=== PATIENT | male | born 1945 | race Caucasian/White ===

== ENCOUNTER → 2018-06-12 | Day surgery (SDC) | payer MEDICARE, OTHER ==
--- NOTE | 2018-06-04 13:22 | Diagnostic Imaging Report ---
EXAMINATION: PA and lateral views of the chest. COMPARISON: None CLINICAL HISTORY: Preoperative study for lithotripsy DISCUSSION: Lines/tubes: None. Lungs: The lungs are well inflated and clear. There is no evidence of pneumonia or pulmonary edema. Pleura: There is no pleural effusion or pneumothorax. Heart and mediastinum: The cardiomediastinal silhouette is normal. Bones and soft tissues: No acute bony abnormalities. Degenerative changes in the thoracic spine IMPRESSION: No acute cardiopulmonary abnormalities. Signed by: Dr. Logan Saldivar M.D. on 06/04/2018 1:18 PM
[2018-06-04 13:32] LABS: BASOPHILS # (AUTO) 0.1 (0.0-0.1); BASOPHILS % 0.8 % (0.0-1.0); HEMATOCRIT 39.8 % (38.2-49.6); HEMOGLOBIN 13.1 g/dL (14.0-18.0); LYMPHOCYTES # (AUTO) 1.5 (1.0-3.2); LYMPHOCYTES % 22.1 % (18.0-39.1); MEAN CORPUSCULAR HEMOGLOBIN 31.8 pg (28-32); MEAN CORPUSCULAR HGB CONC 32.9 g/dL (31-35); MEAN CORPUSCULAR VOLUME 96.6 fL (81-99); MONOCYTES # (AUTO) 0.6 (0.2-0.8); MONOCYTES % 8.5 % (4.4-11.3); NEUTROPHILS # (AUTO) 4.5 (2.1-6.9); NEUTROPHILS % 68.1 % (38.7-80.0); PLATELET COUNT 134 x10e3/uL (140-360); RED BLOOD COUNT 4.12 x10e6/uL (4.3-5.7); RED CELL DISTRIBUTION WIDTH 12.4 % (11.7-14.4)
[2018-06-04 13:44] LABS: INR 0.8; PROTHROMBIN TIME 11.9 seconds (11.9-14.5)
[2018-06-04 13:45] LABS: PARTIAL THROMBOPLASTIN TIME 29.5 seconds (23.8-35.5)
[2018-06-04 13:54] LABS: ALBUMIN 3.6 g/dL (3.5-5.0); ALBUMIN/GLOBULIN RATIO 1.2 (0.8-2.0); ANION GAP 14.3 mmol/L (8-16); CALCIUM 10.2 mg/dL (8.4-10.2); CREATININE, SERUM 1.22 mg/dL (0.72-1.25); POTASSIUM 4.3 mmol/L (3.5-5.1)
[~2018-06-12] MED LIST: CEFOXITIN SOD 1 GM VIAL ONE; CLOPIDOGREL75 MG PO; CRANBERRY TABL1 EACH PO; DEXAMETHASONE SOD PHOS INJ 4 MG/ML VIAL ONE; EFFEXOR XR 3737.5 MG PO; FENTANYL CITRATE/PF 100MCG/2 ML INJ ONE; IOPAMIDOL 610MG/1ML 300 MG/ML VIAL IV ONE; LANSOPRAZOLE30 MG PO; LIDOCAINE HCL 2% LOCAL INJ 5 ML SDV VIAL INJ ONE; MECLIZINE HCL12.5 MG PO; MULTIVITAMINS1 EAC7 PO; NITROFURANTOIN100 MG PO; ONDANSETRON HCL INJ 2MG/ML 2ML 2 MG/ML VIAL ONE; PROPOFOL IV EMULSION 10 MG/ML 20 ML VIAL ONE; SEVOFLURANE INHAL SOLN 250 ML PEN BTL ONE; SIMVASTATIN80 MG PO; SUPER B COMPLE1 EACH PO; TURMERIC PO; VITAMIN B-125000 MCG PO; VITAMIN C1000 MG PO; VITAMIN D3 PO
--- OUTSIDE RECORDS SUMMARY | 2018-06-12 12:33 | XMS REPORT | Continuity of Care Document ---
Author Author [facility] Interface Address Unknown Phone Unavailable Problems Problem Status Onset Date Classification Date Reported Comments Source Toxic encephalopathy 06/05/2017 08/31/[address] [facility] HYPOTENSION Active 05/22/[address] [facility] SYNCOPE Active 09/30/2015 [facility] NSTEMI - Non-ST segment elevation [place] Active 04/28/2009 Problem 08/31/2017 [facility] Upper GI bleeding Active 04/28/2009 Problem 08/31/2017 [facility] Cellulitis of left lower limb 08/31/[address] [facility] Dehydration 08/31/[address] [facility] Atherosclerotic heart disease of [place] coronary artery without angina pectoris 08/31/[address] [facility] Hyperlipidemia, unspecified 08/31/[address] [facility] Essential hypertension 08/31/[address] [facility] Major depressive disorder, single episode, unspecified 08/31/[address] [facility] Adverse effect of other opioids, initial encounter 08/31/[address] [facility] Adverse effect of antiparkinsonism drugs and other central muscle-tone depressants, initial encounter 08/31/[address] [facility] GI bleed Active Problem 08/31/2017 [facility] HTN (<span ID="[id number]">Confirmed</span>) Resolved Problem 08/31/2017 [facility] Hyperlipidemia Active Problem 08/31/2017 [facility] Hypertension Active Problem 08/31/2017 [facility] [place] (<span ID="[id number]">Confirmed</span>) Active Problem 08/31/2017 [facility] TIA Active Problem 08/31/2017 [facility] TIA (<span ID="[id number]">Confirmed</span>) Resolved Problem 08/31/2017 [facility] Depression Active Problem 10/05/2015 [facility] SYNCOPE AND COLLAPSE Active [facility] SYNDACTYLY, UNSPECIFIED Active [facility] BRADYCARDIA, UNSPECIFIED Active [facility] Medications Medication Details Route Status Patient Instructions Ordering Provider Order Date Source clindamycin 300 mg oral capsule 300 mg=1 cap, PO, Q6H, X 10 day, # 40 cap, 0 Refill(s), Pharmacy: [facility]/pharmacy #[id number] No Longer Active 05/25/[address] [facility] Vanc level scheduled Vanc level scheduled, Vanc level due, Drug form: MISC, Route: MISC, ONCE, 05/25/17 10:00:00 [employer], Stop date: 05/25/17 10:00:00 [employer] Inactive 05/25/[address] [facility] Lovenox 40 mg, 0.4 mL, Route: SUB-Q, Drug form: INJ, [id number], Dosing Weight 103.9, kg, Start date: 05/24/17 11:00:00 [employer], Duration: 30 day, Stop date: 06/22/17 11:00:00 CSTNotes: (Same as: Lovenox) No Longer Active 05/24/[address] [facility] Prevacid 30 mg, Route: PO, Drug form: DRC, Daily, Dosing Weight 103.9, kg, Start date: 05/24/17 9:00:00 [employer], Duration: 30 day, Stop date: 06/22/17 9:00:00 [employer] No Longer Active 05/24/[address] [facility] vancomycin 1.25 gm, 250 mL, Route: IVPB, Drug form: INJ, [id number], Start date: 05/23/17 23:00:00 [employer], Duration: 13 doses or times, Stop date: 05/29/17 23:00:00 [employer], ABX Indication: Skin/Soft Tissue InfectionNotes: Same as: Vancocin-NS (premixed) No Longer Active 05/24/[address] [facility] Simvastatin 80 mg, 4 tab, Route: PO, Drug form: TAB, Bedtime, Dosing Weight 103.9, kg, Start date: 05/23/17 21:00:00 [employer], Duration: 30 day, Stop date: 06/21/17 21:00:00 CSTNotes: (Same as: Zocor) No Longer Active 05/24/[address] [facility] Protonix 40 mg, 1 tab, Route: PO, Drug form: ECTAB, Before Dinner, Start date: 05/23/17 16:30:00 [employer], Duration: 30 day, Stop date: 06/21/17 16:30:00 CSTNotes: (Same as: Protonix) No Longer Active 05/23/[address] [facility] vancomycin 1.75 gm, 500 mL, Route: IVPB, Drug form: SOLN, ONCE, Start date: 05/23/17 11:00:00 [employer], Stop date: 05/23/17 11:00:00 [employer], ABX Indication: Skin/Soft Tissue InfectionNotes: Same as: Vancocin Inactive 05/23/[address] [facility] Vancomycin 1 ea, Route: MISC, ONCALL, Dosing Weight 103.9, kg, Start date: 05/23/17 10:00:00 [employer], Duration: 7 day, Stop date: 05/30/17 9:59:00 [employer], Pharmacy to dose, ABX Indication: Skin/Soft Tissue Infection Inactive 05/23/[address] [facility] Zoloft 100 mg, 2 tab, Route: PO, Drug form: TAB, Daily, Dosing Weight 103.9, kg, Start date: 05/23/17 10:00:00 [employer], Duration: 30 day, Stop date: 06/22/17 9:00:00 CSTNotes: (Same as: Zoloft) No Longer Active 05/23/[address] [facility] Plavix 75 mg, 1 tab, Route: PO, Drug form: TAB, Daily, Dosing Weight 103.9, kg, Start date: 05/23/17 10:00:00 [employer], Duration: 30 day, Stop date: 06/22/17 9:00:00 CSTNotes: (Same As: Plavix) No Longer Active 05/23/[address] [facility] Aspirin 81 MG Enteric Coated Tablet 81 mg, 1 tab, Route: PO, Drug form: ECTAB, Daily, Dosing Weight 103.9, kg, Start date: 05/23/17 10:00:00 [employer], Duration: 30 day, Stop date: 06/22/17 9:00:00 CSTNotes: (Same As: Ecotrin) No Longer Active 05/23/[address] [facility] Acetaminophen 325 MG / Hydrocodone Bitartrate 10 MG Oral Tablet [[place] 10/325] 1 tab, PO, Q6H, PRN Pain 4-6/Temp > 100.4 F, 0 Refill(s) Active 05/23/[address] [facility] carisoprodol 350 mg oral tablet 350 mg=1 tab, PO, BID, PRN Muscle Spasms, 0 Refill(s) No Longer Active 05/23/[address] [facility] cephalexin 500 mg oral capsule 500 mg=1 cap, PO, TID, 0 Refill(s) No Longer Active 05/23/[address] [facility] Ondansetron 4 mg, 2 mL, Route: IV, Drug form: INJ, Q4H, Dosing Weight 104.545, kg, PRN Nausea, Start date: 05/22/17 19:56:00 [employer], Duration: 30 day, Stop date: 06/21/17 19:55:00 CSTNotes: (Same as: Zofran) MEDICATION WASTE Product Size: 4 mg Product Wasted: ___ mg No Longer Active 05/23/[address] [facility] Miralax 17 gm, 1 pkt, Route: PO, Drug form: PWDR, BID, Dosing Weight 104.545, kg, PRN Constipation, Start date: 05/22/17 19:56:00 [employer], Duration: 30 day, Stop date: 06/21/17 19:55:00 CSTNotes: Dissolve in 8 oz of water or juice. (Same as: Miralax) No Longer Active 05/23/[address] [facility] Acetaminophen 650 mg, 2 tab, Route: PO, Drug form: TAB, Q6H, Dosing Weight 104.545, kg, PRN Pain Score 1-3, Start date: 05/22/17 19:56:00 [employer], Duration: 30 day, Stop date: 06/21/17 19:55:00 CSTNotes: Do not exceed 4 gm/day. (Same as: Tylenol) No Longer Active 05/23/[address] [facility] Acetaminophen 325 MG / Hydrocodone Bitartrate 5 MG Oral Tablet 1 tab, Route: PO, Drug Form: TAB, Dosing Weight 104.545, kg, Q6H, PRN Pain Score 4-6, Start date: 05/22/17 19:56:00 [employer], Duration: 30 day, Stop date: 06/21/17 19:55:00 CSTNotes: (Same as: [place] 325/5) Do not exceed 4gm/day of acetaminophen. No Longer Active 05/23/[address] [facility] NS 1,000 mL 1,000 mL, Rate: 100 ml/hr, Infuse over: 10 hr, Route: IV, Dosing Weight 104.545 kg, Total Volume: 1,000, Start date: 05/22/17 19:55:00 [employer], Duration: 10 hr, Stop date: 05/23/17 5:54:00 [employer], 2.35, m2 No Longer Active 05/23/[address] [facility] Acetaminophen 325 MG / Hydrocodone Bitartrate 5 MG Oral Tablet 1 tab, Route: PO, Dosing Weight 104.545, kg, Q4H, PRN Pain Score 4-6, Start date: 05/22/17 19:54:00 [employer], Duration: 30 day, Stop date: 06/21/17 19:53:00 [employer] Inactive 05/23/[address] [facility] Acetaminophen 650 mg, 2 tab, Route: PO, Drug form: TAB, Q4H, Dosing Weight 104.545, kg, PRN Pain 1-3/Temp > 100.4 F, Start date: 05/22/17 19:54:00 [employer], Duration: 30 day, Stop date: 06/21/17 19:53:00 CSTNotes: Do not exceed 4 gm/day. (Same as: Tylenol) No Longer Active 05/23/[address] [facility] Ondansetron 4 mg, 2 mL, Route: IVP, Drug form: INJ, Q6H, Dosing Weight 104.545, kg, PRN Nausea & Vomiting, Start date: 05/22/17 19:54:00 [employer], Duration: 30 day, Stop date: 06/21/17 19:53:00 CSTNotes: (Same as: Flaquita) MEDICATION WASTE Product Size: 4 mg Product Wasted: ___ mg No Longer Active 05/23/[address] [facility] NS (Bolus) IV 1,000 mL, 1,000 ml/hr, Infuse Over: 1 hr, Route: IV, ONCE, Priority: STAT, Dosing Weight 104.545 kg, Start date: 05/22/17 17:45:00 [employer], Stop date: 05/22/17 17:45:00 [employer] Inactive 05/22/[address] [facility] Acetaminophen 300 MG / Codeine Phosphate 30 MG Oral Tablet [Tylenol with Codeine #3] 1 tab, PO, Q6H, PRN Pain Score 6-10, X 5 day, # 20 tab, 0 Refill(s) Active 10/02/2015 [facility] acetaminophen 325 mg oral tablet 650 mg=2 tab, PO, Q4H, PRN Pain 1-3/Temp > 100.4 F, 0 Refill(s) Active 10/02/2015 [facility] Aspirin 81 MG Enteric Coated Tablet 81 mg=1 tab, PO, Daily, 0 Refill(s) Active 10/02/2015 [facility] Simvastatin 80 mg, 2 tab, Route: PO, Drug form: TAB, Bedtime, Dosing Weight 90.909, kg, Start date: 10/01/15 21:00:00 CDT, Duration: 30 day, Stop date: 10/30/15 21:00:00 CDTNotes: (Same as: Zocor) No Longer Active 10/02/2015 [facility] potassium chloride 40 mEq, 2 tab, Route: PO, Drug form: ERTAB, ONCE, Dosing Weight 99.545, kg, Start date: 10/01/15 17:56:00 CDT, Stop date: 10/01/15 17:56:00 CDTNotes: (Same as: K-Dur 20) "Do Not Crush" With food and full glass of water Inactive 10/01/2015 [facility] Protonix 40 mg, 1 tab, Route: PO, Drug form: ECTAB, Before Dinner, Start date: 10/01/15 16:30:00 CDT, Duration: 30 day, Stop date: 10/30/15 16:30:00 CDTNotes: Tablet should not be chewed or crushed. (Same as: Protonix) No Longer Active 10/01/2015 [facility] senna 8.6 mg oral tablet 8.6 mg, 1 tab, Route: PO, Drug Form: TAB, Dosing Weight 99.545, kg, BID, PRN Constipation, Start date: 10/01/15 16:25:00 CDT, Duration: 30 day, Stop date: 10/31/15 16:24:00 CDTNotes: (Same as: Senokot) Inactive 10/01/2015 [facility] Acetaminophen 300 MG / Codeine Phosphate 30 MG Oral Tablet [Tylenol with Codeine #3] 1 tab, Route: PO, Drug Form: TAB, Dosing Weight 99.545, kg, Q6H, PRN Pain Score 6-10, Start date: 10/01/15 15:08:00 CDT, Duration: 30 day, Stop date: 10/31/15 15:07:00 CDTNotes: Do not exceed 4gm/day of acetaminophen. (Same as: Tylenol with Codeine # 3) No Longer Active 10/01/2015 [facility] Aspirin 81 mg, 1 tab, Route: PO, Drug form: ECTAB, Daily, Dosing Weight 99.545, kg, Start date: 10/01/15 9:00:00 CDT, Duration: 30 day, Stop date: 10/30/15 9:00:00 CDTNotes: Do not crush or chew. (Same As: Ecotrin) No Longer Active 10/01/2015 [facility] Zoloft 100 mg, 1 tab, Route: PO, Drug form: TAB, Daily, Dosing Weight 90.909, kg, Start date: 10/01/15 9:00:00 CDT, Duration: 30 day, Stop date: 10/30/15 9:00:00 CDTNotes: (Same as: Zoloft) No Longer Active 10/01/2015 [facility] Prevacid 30 mg, Route: PO, Drug form: DRC, Daily, Dosing Weight 90.909, kg, Start date: 10/01/15 9:00:00 CDT, Duration: 30 day, Stop date: 10/30/15 9:00:00 CDT Inactive 10/01/2015 [facility] Plavix 75 mg, 1 tab, Route: PO, Drug form: TAB, Daily, Dosing Weight 90.909, kg, Start date: 10/01/15 9:00:00 CDT, Duration: 30 day, Stop date: 10/30/15 9:00:00 CDTNotes: (Same As: Plavix) No Longer Active 10/01/2015 [facility] Magnesium Sulfate 1 gm, 100 mL, Route: IVPB, Drug form: INJ, ONCE, Dosing Weight 99.545, kg, Start date: 10/01/15 8:13:00 CDT, Duration: 1 doses or times, Stop date: 10/01/15 8:13:00 CDTNotes: WASTE: F/P - Sink; E - Municipal Trash Bin Inactive 10/01/2015 [facility] potassium chloride 40 mEq, 2 tab, Route: PO, Drug form: ERTAB, ONCE, Dosing Weight 99.545, kg, Start date: 10/01/15 8:12:00 CDT, Stop date: 10/01/15 8:12:00 CDTNotes: (Same as: K-Dur 20) "Do Not Crush" With food and full glass of water Inactive 10/01/2015 [facility] sodium chloride 0.9% 1000 ml INJ 1,000 mL 1,000 mL, Rate: 125 ml/hr, Infuse over: 8 hr, Route: IV, Dosing Weight 90.909 kg, Total Volume: 1,000, Start date: 10/01/15 1:10:00 CDT, Duration: 30 day, Stop date: 10/31/15 1:09:00 CDT No Longer Active 10/01/2015 [facility] heparin sodium, porcine 2500 UNT/ML Injectable Solution 5,000 unit, 1 mL, Route: SUB-Q, Drug form: INJ, Q8H, Dosing Weight 90.909, kg, Start date: 10/01/15 0:00:00 CDT, Duration: 30 day, Stop date: 10/30/15 16:00:00 CDTNotes: porcine heparin No Longer Active 10/01/2015 [facility] tramadol hydrochloride 50 MG Oral Tablet 50 mg, Route: PO, Drug form: TAB, ONCE, Dosing Weight 90.909, kg, PRN Pain Score 1-3, Start date: 09/30/15 23:57:00 CDT, Stop date: 10/30/15 23:56:00 CDT Inactive 10/01/2015 [facility] simvastatin 80 mg oral tablet 80 mg=1 tab, PO, Bedtime, # 90 tab, 1 Refill(s) Active 10/01/2015 [facility] lansoprazole 30 MG Enteric Coated Capsule [Prevacid] 30 mg=1 cap, PO, Daily, # 30 cap, 0 Refill(s) Active 10/01/2015 [facility] clopidogrel 75 MG Oral Tablet [Plavix] 75 mg=1 tab, PO, Daily, # 30 tab, 0 Refill(s) Active 10/01/2015 [facility] Sertraline 100 MG Oral Tablet [Zoloft] 100 mg=1 tab, PO, Daily, # 30 tab, 0 Refill(s) Active 10/01/2015 [facility] Hydrochlorothiazide 25 mg, PO, Daily, 0 Refill(s) No Longer Active 10/01/2015 [facility] Acetaminophen 650 mg, 2 tab, Route: PO, Drug form: TAB, Q4H, Dosing Weight 90.909, kg, PRN Pain 1-3/Temp > 100.4 F, Start date: 09/30/15 22:55:00 CDT, Duration: 30 day, Stop date: 10/30/15 22:54:00 CDTNotes: Do not exceed 4 gm/day. (Same as: Tylenol) No Longer Active 10/01/2015 [facility] Isolyte S (PH 7.4) 1000 mL 1,000 mL 1,000 mL, Rate: 1,000 ml/hr, Infuse over: 1 hr, Route: IV, Dosing Weight 90.909 kg, Total Volume: 1,000, Start date: 09/30/15 22:49:00 CDT, Duration: 1 doses or times, Stop date: 09/30/15 23:48:00 CDTNotes: (Same as: Isolyte S PH 7.4) Inactive 10/01/2015 [facility] Acetaminophen 1,000 mg, 2 tab, Route: PO, Drug form: TAB, ONCE, Dosing Weight 90.909, kg, Start date: 09/30/15 21:45:00 CDT, Stop date: 09/30/15 21:45:00 CDTNotes: Max acetaminophen 4000 mg/day (4 gm/day). (Same as: Tylenol Extra Strength) Inactive 10/01/2015 [facility] Isolyte S (PH 7.4) 1000 mL 1,000 mL 1,000 mL, Rate: 1,000 ml/hr, Infuse over: 1 hr, Route: IV, Dosing Weight 90.909 kg, Total Volume: 1,000, Start date: 09/30/15 21:44:00 CDT, Duration: 1 doses or times, Stop date: 09/30/15 22:43:00 CDTNotes: (Same as: Isolyte S PH 7.4) Inactive 10/01/2015 [facility] Allergies, Adverse Reactions, Alerts Substance Category Reaction Severity Reaction type Status Date Reported Comments Source Immunizations Immunization Date Given Site Status Last Updated Comments Source Results Order Name Results Value Reference Range Date Interpretation Comments Source TOXICOLOGY Vanco Lvl 17.6 ug/ml 05/25/[address] [facility] CHEM PANEL eGFR 73 mL/min/1.73m2 05/25/2017 Result Comment: The eGFR is calculated using the CKD-EPI formula. In most young, healthy individuals the eGFR will be >90 mL/min/1.73m2. The eGFR declines with age. An eGFR of 60-89 may be normal in some populations, particularly the elderly, for whom the CKD-EPI formula has not been extensively validated. Use of the eGFR is not recommended in the following populations: Individuals with unstable creatinine concentrations, including patients and those with serious co-morbid conditions. Patients with extremes in muscle mass or diet. The data above are obtained from the National Kidney Disease Education Program (NKDEP) which additionally recommends that when the eGFR is used in patients with extremes of body mass index for purposes of drug dosing, the eGFR should be multiplied by the estimated BMI. [facility] CHEM PANEL BUN 17 mg/dL 7 - 22 05/25/[address] [facility] CHEM PANEL Creatinine Lvl 1.02 mg/dL 0.50 - 1.40 05/25/[address] [facility] CHEM PANEL eGFR 63 mL/min/1.73m2 05/23/2017 Result Comment: The eGFR is calculated using the CKD-EPI formula. In most young, healthy individuals the eGFR will be >90 mL/min/1.73m2. The eGFR declines with age. An eGFR of 60-89 may be normal in some populations, particularly the elderly, for whom the CKD-EPI formula has not been extensively validated. Use of the eGFR is not recommended in the following populations: Individuals with unstable creatinine concentrations, including patients and those with serious co-morbid conditions. Patients with extremes in muscle mass or diet. The data above are obtained from the National Kidney Disease Education Program (NKDEP) which additionally recommends that when the eGFR is used in patients with extremes of body mass index for purposes of drug dosing, the eGFR should be multiplied by the estimated BMI. [facility] CHEM PANEL Glucose Lvl 101 mg/dL 70 - 99 05/23/[address] [facility] CHEM PANEL BUN 17 mg/dL 7 - 22 05/23/[address] [facility] CHEM PANEL Creatinine Lvl 1.15 mg/dL 0.50 - 1.40 05/23/[address] [facility] CHEM PANEL Sodium Lvl 142 meq/L 135 - 145 05/23/[address] [facility] CHEM PANEL Chloride Lvl 110 meq/L 95 - 109 05/23/[address] [facility] CHEM PANEL Potassium Lvl 4.2 meq/L 3.5 - 5.1 05/23/[address] [facility] CHEM PANEL CO2 26 meq/L 24 - 32 05/23/[address] [facility] CHEM PANEL Calcium Lvl 9.5 mg/dL 8.5 - 10.5 05/23/[address] [facility] CHEM PANEL AGAP 10.2 meq/L 10.0 - 20.0 05/23/[address] [facility] HEMATOLOGY WBC 7.8 K/CMM 3.7 - 10.4 05/23/2017 [facility] Hct 37.4 % 42.0 - 54.0 05/23/[address] [facility] HEMATOLOGY MPV 9.6 fL 7.4 - 10.4 05/23/2017 [facility] MCHC 32.9 g/dL 32.0 - 36.0 05/23/2017 [facility] MCH 31.1 pg 27.0 - 31.0 05/23/2017 [facility] MCV 94.4 fL 80.0 - 94.0 05/23/2017 [facility] Hgb 12.3 g/dL 14.0 - 18.0 05/23/2017 [facility] RBC 3.96 M/CMM 4.70 - 6.10 05/23/[address] [facility] HEMATOLOGY Platelet 132 K/CMM 133 - 450 05/23/[address] [facility] HEMATOLOGY RDW 13.7 % 11.5 - 14.5 05/23/[address] [facility] HEMATOLOGY Monocytes 8.1 % 2.0 - 12.0 05/23/[address] [facility] HEMATOLOGY Lymphocytes 16.8 % 20.0 - 40.0 05/23/[address] [facility] HEMATOLOGY Segs 72.3 % 45.0 - 75.0 05/23/2017 [facility] Monocytes # 0.6 K/CMM 0.0 - 0.8 05/23/[address] [facility] HEMATOLOGY Lymphocytes # 1.3 K/CMM 1.0 - 5.5 05/23/2017 [facility] HEMATOLOGY Basophils 0.5 % 0.0 - 1.0 05/23/[address] [facility] HEMATOLOGY Eosinophils 2.3 % 0.0 - 4.0 05/23/[address] [facility] HEMATOLOGY Segs-Bands # 5.6 K/CMM 1.5 - 8.1 05/23/[address] [facility] HEMATOLOGY Eosinophils # 0.2 K/CMM 0.0 - 0.5 05/23/[address] [facility] CHEM PANEL Lactic Acid Lvl 0.7 mMol/L 0.5 - 2.2 05/23/2017 [facility] UA Urobilinogen <=1.0 mg/dL 0.1 - 1.0 05/22/2017 [facility] WBC 5 /HPF 0 - 5 05/22/2017 [facility] Mucus Few /LPF None Seen /LPF 05/22/2017 [facility] RBC 3 /HPF 0 - 2 05/22/2017 [facility] Bacteria Few /HPF None Seen /HPF 05/22/2017 [facility] Hyal Cast 4 /LPF 0 - 2 05/22/2017 [facility] Sq Epi Occasional /LPF Few /LPF 05/22/2017 [facility] Leuk Est Trace *ABN* (05/22/17 5:37 PM) Negative 05/22/2017 [facility] Nitrite Negative (05/22/17 5:37 PM) Negative 05/22/2017 [facility] Blood Negative (05/22/17 5:37 PM) Negative 05/22/2017 [facility] Turbidity Marked *ABN* (05/22/17 5:37 PM) Clear 05/22/2017 [facility] Spec Grav 1.016 <=1.030 05/22/2017 [facility]A Bili Negative *NA* (05/22/17 5:37 PM) Negative 05/22/2017 [facility]A Protein Negative mg/dL Negative mg/dL 05/22/2017 [facility]A Ketones Negative mg/dL Negative mg/dL 05/22/2017 [facility]A Glucose Negative mg/dL Negative mg/dL 05/22/2017 [facility] STOOL UA Color Tracey *ABN* (05/22/17 5:37 PM) Yellow 05/22/[address] [facility] URINE AND STOOL UA pH 5.0 5.0 - 8.0 05/22/[address] [facility] CARDIAC ENZYMES BNP 64 pg/mL <=100 pg/mL 05/22/[address] [facility] CARDIAC ENZYMES Total CK 63 unit/L 12 - 191 05/22/[address] [facility] CARDIAC ENZYMES Troponin-I null 0.00 - 0.40 05/22/[address] [facility] CHEM PANEL Lipase Lvl 93 unit/L 73 - 393 05/22/[address] [facility] CHEM PANEL eGFR 37 mL/min/1.73m2 05/22/2017 Result Comment: The eGFR is calculated using the CKD-EPI formula. In most young, healthy individuals the eGFR will be >90 mL/min/1.73m2. The eGFR declines with age. An eGFR of 60-89 may be normal in some populations, particularly the elderly, for whom the CKD-EPI formula has not been extensively validated. Use of the eGFR is not recommended in the following populations: Individuals with unstable creatinine concentrations, including patients and those with serious co-morbid conditions. Patients with extremes in muscle mass or diet. The data above are obtained from the National Kidney Disease Education Program (NKDEP) which additionally recommends that when the eGFR is used in patients with extremes of body mass index for purposes of drug dosing, the eGFR should be multiplied by the estimated BMI. [facility] CHEM PANEL CO2 27 meq/L 24 - 32 05/22/[address] [facility] CHEM PANEL Calcium Lvl 10.2 mg/dL 8.5 - 10.5 05/22/[address] [facility] CHEM PANEL AST 22 unit/L 0 - 37 05/22/[address] [facility] CHEM PANEL Total Protein 7.9 g/dL 6.4 - 8.4 05/22/[address] [facility] CHEM PANEL ALT 14 unit/L 0 - 65 05/22/[address] [facility] CHEM PANEL Albumin Lvl 3.5 g/dL 3.5 - 5.0 05/22/[address] [facility] CHEM PANEL Alk Phos 101 unit/L 39 - 136 05/22/[address] [facility] CHEM PANEL Bili Total 0.3 mg/dL 0.2 - 1.3 05/22/[address] [facility] CHEM PANEL BUN 20 mg/dL 7 - 22 05/22/[address] [facility] CHEM PANEL Glucose Lvl 94 mg/dL 70 - 99 05/22/[address] [facility] CHEM PANEL Sodium Lvl 140 meq/L 135 - 145 05/22/[address] [facility] CHEM PANEL Creatinine Lvl 1.80 mg/dL 0.50 - 1.40 05/22/[address] [facility] CHEM PANEL Potassium Lvl 4.4 meq/L 3.5 - 5.1 05/22/[address] [facility] CHEM PANEL Chloride Lvl 107 meq/L 95 - 109 05/22/[address] [facility] CHEM PANEL B/C Ratio 11 6 - 25 05/22/[address] [facility] CHEM PANEL Globulin 4.4 g/dL 2.7 - 4.2 05/22/[address] [facility] CHEM PANEL A/G Ratio 0.8 0.7 - 1.6 05/22/[address] [facility] CHEM PANEL AGAP 10.4 meq/L 10.0 - 20.0 05/22/[address] [facility] CHEM PANEL Lactic Acid Lvl 2.2 mMol/L 0.5 - 2.2 05/22/2017 [facility] PTT 30.3 s 22.9 - 35.8 05/22/2017 [facility] PT 13.8 s 12.0 - 14.7 05/22/2017 [facility] INR 1.06 0.85 - 1.17 05/22/2017 [facility] WBC 9.3 K/CMM 3.7 - 10.4 05/22/2017 [facility] Hgb 12.7 g/dL 14.0 - 18.0 05/22/2017 [facility] MCV 94.6 fL 80.0 - 94.0 05/22/2017 [facility] Hct 39.4 % 42.0 - 54.0 05/22/2017 [facility] MCH 30.6 pg 27.0 - 31.0 05/22/2017 [facility] MPV 9.4 fL 7.4 - 10.4 05/22/2017 [facility] RBC 4.16 M/CMM 4.70 - 6.10 05/22/2017 [facility] MCHC 32.3 g/dL 32.0 - 36.0 05/22/2017 [facility] Platelet 172 K/CMM 133 - 450 05/22/2017 [facility] RDW 13.7 % 11.5 - 14.5 05/22/2017 [facility] Eosinophils # 0.2 K/CMM 0.0 - 0.5 05/22/2017 [facility] Basophils # 0.1 K/CMM 0.0 - 0.2 05/22/[address] [facility] HEMATOLOGY Lymphocytes # 1.7 K/CMM 1.0 - 5.5 05/22/[address] [facility] HEMATOLOGY Monocytes # 0.8 K/CMM 0.0 - 0.8 05/22/[address] [facility] HEMATOLOGY Lymphocytes 18.0 % 20.0 - 40.0 05/22/[address] [facility] HEMATOLOGY Monocytes 8.7 % 2.0 - 12.0 05/22/[address] [facility] HEMATOLOGY Segs 70.8 % 45.0 - 75.0 05/22/[address] [facility] HEMATOLOGY Eosinophils 1.8 % 0.0 - 4.0 05/22/[address] [facility] HEMATOLOGY Basophils 0.7 % 0.0 - 1.0 05/22/2017 [facility] Segs-Bands # 6.6 K/CMM 1.5 - 8.1 05/22/[address] [facility] Chest 1view DX Chest 1view DX Clinical indication: Chest pain - chest pain, bradycardia Comparison: Chest 1 view 09/30/2015 TECHNIQUE: AP chest FINDINGS: Lines, tubes and hardware: None. Lungs and pleura: The lung volumes are mildly low with left basilar subsegmental atelectasis. No focal consolidation. No definite pleural effusion or pneumothorax. Heart and mediastinum: The cardiomediastinal silhouette is within normal limits. Bones: No acute bony abnormality is identified. IMPRESSION: Low lung volumes with left basilar subsegmental atelectasis. SL: [id number] 05/22/2017 - - Read by: Serena Meza MD Dictated Date/time: 05/22/17 17:21 Electronically Signed by: Serena Meza MD 05/22/17 17:22 [address] [facility] CHEM PANEL eGFR 56 mL/min/1.73m2 10/02/2015 Result Comment: The eGFR is calculated using the CKD-EPI formula. In most young, healthy individuals the eGFR will be >90 mL/min/1.73m2. The eGFR declines with age. An eGFR of 60-89 may be normal in some populations, particularly the elderly, for whom the CKD-EPI formula has not been extensively validated. Use of the eGFR is not recommended in the following populations: Individuals with unstable creatinine concentrations, including patients and those with serious co-morbid conditions. Patients with extremes in muscle mass or diet. The data above are obtained from the National Kidney Disease Education Program (NKDEP) which additionally recommends that when the eGFR is used in patients with extremes of body mass index for purposes of drug dosing, the eGFR should be multiplied by the estimated BMI. [facility] CHEM PANEL Calcium Lvl 9.2 mg/dL 8.5 - 10.5 10/02/2015 [facility] CHEM PANEL CO2 31 meq/L 24 - 32 10/02/2015 [facility] CHEM PANEL Potassium Lvl 3.3 meq/L 3.5 - 5.1 10/02/2015 [facility] CHEM PANEL Chloride Lvl 104 meq/L 95 - 109 10/02/2015 [facility] CHEM PANEL Sodium Lvl 142 meq/L 135 - 145 10/02/2015 [facility] CHEM PANEL BUN 16 mg/dL 7 - 22 10/02/2015 [facility] CHEM PANEL Glucose Lvl 102 mg/dL 70 - 99 10/02/2015 [facility] CHEM PANEL Creatinine Lvl 1.29 mg/dL 0.50 - 1.40 10/02/2015 [facility] CHEM PANEL AGAP 10.3 meq/L 10.0 - 20.0 10/02/2015 [facility] HEMATOLOGY WBC 6.1 K/CMM 3.7 - 10.4 10/02/2015 [facility] HEMATOLOGY RBC 3.70 M/CMM 4.70 - 6.10 10/02/2015 [facility] HEMATOLOGY Hgb 11.6 g/dL 14.0 - 18.0 10/02/2015 [facility] HEMATOLOGY Hct 34.4 % 42.0 - 54.0 10/02/2015 [facility] HEMATOLOGY MCH 31.5 pg 27.0 - 31.0 10/02/2015 [facility] HEMATOLOGY MCHC 33.8 g/dL 32.0 - 36.0 10/02/2015 [facility] HEMATOLOGY RDW 13.9 % 11.5 - 14.5 10/02/2015 [facility] HEMATOLOGY Platelet 94 K/CMM 133 - 450 10/02/2015 [facility] HEMATOLOGY MPV 9.9 fL 7.4 - 10.4 10/02/2015 [facility] HEMATOLOGY MCV 93.2 fL 80.0 - 94.0 10/02/2015 [facility] HEMATOLOGY Eosinophils 2.8 % 0.0 - 4.0 10/02/2015 [facility] HEMATOLOGY Basophils 0.8 % 0.0 - 1.0 10/02/2015 [facility] HEMATOLOGY Segs-Bands # 3.5 K/CMM 1.5 - 8.1 10/02/2015 [facility] HEMATOLOGY Lymphocytes # 1.9 K/CMM 1.0 - 5.5 10/02/2015 [facility] HEMATOLOGY Monocytes # 0.5 K/CMM 0.0 - 0.8 10/02/2015 [facility] HEMATOLOGY Eosinophils # 0.2 K/CMM 0.0 - 0.5 10/02/2015 [facility] HEMATOLOGY Monocytes 7.6 % 2.0 - 12.0 10/02/2015 [facility] HEMATOLOGY Segs 57.7 % 45.0 - 75.0 10/02/2015 [facility] HEMATOLOGY Lymphocytes 31.1 % 20.0 - 40.0 10/02/2015 [facility] CARDIAC ENZYMES Troponin-I 0.02 ng/mL 0.00 - 0.40 10/02/2015 [facility] ELECTROLYTES Chloride Lvl 105 meq/L 95 - 109 10/01/2015 [facility] ELECTROLYTES AGAP 15.2 meq/L 10.0 - 20.0 10/01/2015 [facility] ELECTROLYTES Calcium Lvl 9.6 mg/dL 8.5 - 10.5 10/01/2015 [facility] ELECTROLYTES eGFR 49 mL/min/1.73m2 10/01/2015 Result Comment: The eGFR is calculated using the CKD-EPI formula. In most young, healthy individuals the eGFR will be >90 mL/min/1.73m2. The eGFR declines with age. An eGFR of 60-89 may be normal in some populations, particularly the elderly, for whom the CKD-EPI formula has not been extensively validated. Use of the eGFR is not recommended in the following populations: Individuals with unstable creatinine concentrations, including patients and those with serious co-morbid conditions. Patients with extremes in muscle mass or diet. The data above are obtained from the National Kidney Disease Education Program (NKDEP) which additionally recommends that when the eGFR is used in patients with extremes of body mass index for purposes of drug dosing, the eGFR should be multiplied by the estimated BMI. [facility] ELECTROLYTES BUN 17 mg/dL 7 - 22 10/01/2015 [facility] ELECTROLYTES Glucose Lvl 112 mg/dL 70 - 99 10/01/2015 [facility] ELECTROLYTES Potassium Lvl 3.2 meq/L 3.5 - 5.1 10/01/2015 [facility] ELECTROLYTES Sodium Lvl 142 meq/L 135 - 145 10/01/2015 [facility] ELECTROLYTES Creatinine Lvl 1.44 mg/dL 0.50 - 1.40 10/01/2015 [facility] ELECTROLYTES CO2 25 meq/L 24 - 32 10/01/2015 [facility] CARDIAC ENZYMES Troponin-I 0.04 ng/mL 0.00 - 0.40 10/01/2015 [facility] DRUG SCREEN UDS Note See Note *NA* (10/01/15 10:43 AM) 10/01/2015 [facility] DRUG SCREEN U Livier Scr Negative *NA* (10/01/15 10:43 AM) Negative 10/01/2015 [facility] DRUG SCREEN U Opiate Scr Negative *NA* (10/01/15 10:43 AM) Negative 10/01/2015 [facility] DRUG SCREEN U Phencyc Scr Negative *NA* (10/01/15 10:43 AM) Negative 10/01/2015 [facility] DRUG SCREEN U Benzodia Scr Negative *NA* (10/01/15 10:43 AM) Negative 10/01/2015 [facility] DRUG SCREEN U Cannab Scr Negative *NA* (10/01/15 10:43 AM) Negative 10/01/2015 [facility] DRUG SCREEN U Cocaine Scr Negative *NA* (10/01/15 10:43 AM) Negative 10/01/2015 [facility] DRUG SCREEN U Amph Scr Negative *NA* (10/01/15 10:43 AM) Negative 10/01/2015 [facility] URINE AND STOOL UA Color Yellow *NA* (10/01/15 10:43 AM) Yellow 10/01/2015 [facility] URINE AND STOOL UA Turbidity Clear (10/01/15 10:43 AM) Clear 10/01/2015 [facility] URINE AND STOOL UA Bili Negative *NA* (10/01/15 10:43 AM) Negative 10/01/2015 [facility] URINE AND STOOL UA WBC 5 /HPF 0 - 5 10/01/2015 [facility] URINE AND STOOL UA Amorph Nadia Occasional /HPF None Seen /HPF 10/01/2015 [facility] URINE AND STOOL UA Bacteria Occasional /HPF None Seen /HPF 10/01/2015 [facility] URINE AND STOOL UA Mucus Few /LPF None Seen /LPF 10/01/2015 [facility] URINE AND STOOL UA RBC 2 /HPF 0 - 2 10/01/2015 [facility] URINE AND STOOL UA Hyal Cast 11 /LPF 0 - 2 10/01/2015 [facility] URINE AND STOOL UA Urobilinogen <=1.0 mg/dL 0.1 - 1.0 10/01/2015 [facility] URINE AND STOOL UA Gran Cast 1 /LPF 10/01/2015 [facility] URINE AND STOOL Micro? Performed *NA* (10/01/15 10:43 AM) 10/01/2015 [facility] URINE AND STOOL UA Spec Grav 1.016 <=1.030 10/01/2015 [facility] URINE AND STOOL UA Protein 10 mg/dL Negative mg/dL 10/01/2015 [facility] URINE AND STOOL UA pH 5.5 5.0 - 8.0 10/01/2015 [facility] URINE AND STOOL UA Ketones Negative mg/dL Negative mg/dL 10/01/2015 [facility] URINE AND STOOL UA Glucose Negative mg/dL Negative mg/dL 10/01/2015 [facility] URINE AND STOOL UA Leuk Est Small *ABN* (10/01/15 10:43 AM) Negative 10/01/2015 [facility] URINE AND STOOL UA Blood Negative (10/01/15 10:43 AM) Negative 10/01/2015 [facility] URINE AND STOOL UA Nitrite Negative (10/01/15 10:43 AM) Negative 10/01/2015 [facility] URINE CHEM U Chloride 75 meq/L 10/01/2015 [facility] URINE CHEM U Potassium 52.8 meq/L 10/01/2015 [facility] URINE CHEM U Sodium 70 meq/L 10/01/2015 [facility] URINE CHEM U Creatinine 175.00 mg/dL 10/01/2015 [facility] CARDIAC ENZYMES Troponin-I 0.07 ng/mL 0.00 - 0.40 10/01/2015 [facility] ELECTROLYTES AGAP 16.3 meq/L 10.0 - 20.0 10/01/2015 [facility] ELECTROLYTES eGFR 36 mL/min/1.73m2 10/01/2015 Result Comment: The eGFR is calculated using the CKD-EPI formula. In most young, healthy individuals the eGFR will be >90 mL/min/1.73m2. The eGFR declines with age. An eGFR of 60-89 may be normal in some populations, particularly the elderly, for whom the CKD-EPI formula has not been extensively validated. Use of the eGFR is not recommended in the following populations: Individuals with unstable creatinine concentrations, including patients and those with serious co-morbid conditions. Patients with extremes in muscle mass or diet. The data above are obtained from the National Kidney Disease Education Program (NKDEP) which additionally recommends that when the eGFR is used in patients with extremes of body mass index for purposes of drug dosing, the eGFR should be multiplied by the estimated BMI. [facility] ELECTROLYTES Potassium Lvl 3.3 meq/L 3.5 - 5.1 10/01/2015 [facility] ELECTROLYTES Sodium Lvl 141 meq/L 135 - 145 10/01/2015 [facility] ELECTROLYTES Creatinine Lvl 1.86 mg/dL 0.50 - 1.40 10/01/2015 [facility] ELECTROLYTES BUN 19 mg/dL 7 - 22 10/01/2015 [facility] ELECTROLYTES Glucose Lvl 111 mg/dL 70 - 99 10/01/2015 [facility] ELECTROLYTES Calcium Lvl 9.7 mg/dL 8.5 - 10.5 10/01/2015 [facility] ELECTROLYTES CO2 24 meq/L 24 - 32 10/01/2015 [facility] ELECTROLYTES Chloride Lvl 104 meq/L 95 - 109 10/01/2015 [facility] HEMATOLOGY MPV 9.4 fL 7.4 - 10.4 10/01/2015 [facility] HEMATOLOGY MCHC 33.1 g/dL 32.0 - 36.0 10/01/2015 [facility] HEMATOLOGY MCV 92.9 fL 80.0 - 94.0 10/01/2015 [facility] HEMATOLOGY MCH 30.8 pg 27.0 - 31.0 10/01/2015 [facility] HEMATOLOGY RDW 13.7 % 11.5 - 14.5 10/01/2015 [facility] HEMATOLOGY Platelet 122 K/CMM 133 - 450 10/01/2015 [facility] HEMATOLOGY WBC 11.4 K/CMM 3.7 - 10.4 10/01/2015 [facility] HEMATOLOGY RBC 3.94 M/CMM 4.70 - 6.10 10/01/2015 [facility] HEMATOLOGY Hgb 12.1 g/dL 14.0 - 18.0 10/01/2015 [facility] HEMATOLOGY Hct 36.6 % 42.0 - 54.0 10/01/2015 [facility] HEMATOLOGY Basophils 0.3 % 0.0 - 1.0 10/01/2015 [facility] HEMATOLOGY Segs-Bands # 8.4 K/CMM 1.5 - 8.1 10/01/2015 [facility] HEMATOLOGY Lymphocytes # 2.2 K/CMM 1.0 - 5.5 10/01/2015 [facility] HEMATOLOGY RBC Morph Normal (10/01/15 5:28 AM) 10/01/2015 [facility] HEMATOLOGY Plt Morph Normal (10/01/15 5:28 AM) 10/01/2015 [facility] HEMATOLOGY Segs 73.3 % 45.0 - 75.0 10/01/2015 [facility] HEMATOLOGY Eosinophils 0.6 % 0.0 - 4.0 10/01/2015 [facility] HEMATOLOGY Monocytes 6.6 % 2.0 - 12.0 10/01/2015 [facility] HEMATOLOGY Lymphocytes 19.2 % 20.0 - 40.0 10/01/2015 [facility] HEMATOLOGY Monocytes # 0.8 K/CMM 0.0 - 0.8 10/01/2015 [facility] HEMATOLOGY Eosinophils # 0.1 K/CMM 0.0 - 0.5 10/01/2015 [facility] CARDIAC ENZYMES CK MB 0.8 ng/mL 0.5 - 3.6 10/01/2015 [facility] CARDIAC ENZYMES CK MB Index 0.9 0.0 - 2.5 10/01/2015 [facility] CARDIAC ENZYMES Total CK 85 unit/L 12 - 191 10/01/2015 [facility] CHEM PANEL Phosphorus 1.8 mg/dL 2.5 - 4.5 10/01/2015 [facility] CHEM PANEL Magnesium Lvl 1.7 mg/dL 1.8 - 2.4 10/01/2015 [facility] CHEM PANEL B/C Ratio 9 6 - 25 10/01/2015 [facility] CHEM PANEL Globulin 3.8 g/dL 2.0 - 4.0 10/01/2015 [facility] CHEM PANEL A/G Ratio 1.1 0.7 - 1.6 10/01/2015 [facility] CHEM PANEL Albumin Lvl 4.3 g/dL 3.5 - 5.0 10/01/2015 [facility] CHEM PANEL Alk Phos 91 unit/L 39 - 136 10/01/2015 [facility] CHEM PANEL Bili Total 0.8 mg/dL 0.2 - 1.3 10/01/2015 [facility] CHEM PANEL ALT 19 unit/L 0 - 65 10/01/2015 [facility] CHEM PANEL AST 17 unit/L 0 - 37 10/01/2015 [facility] CHEM PANEL Total Protein 8.1 g/dL 6.4 - 8.4 10/01/2015 [facility] HEMATOLOGY Platelet 137 K/CMM 133 - 450 10/01/2015 [facility] HEMATOLOGY MPV 10.0 fL 7.4 - 10.4 10/01/2015 [facility] HEMATOLOGY Hct 41.5 % 42.0 - 54.0 10/01/2015 [facility] HEMATOLOGY MCV 92.4 fL 80.0 - 94.0 10/01/2015 [facility] HEMATOLOGY MCH 30.6 pg 27.0 - 31.0 10/01/2015 [facility] HEMATOLOGY MCHC 33.1 g/dL 32.0 - 36.0 10/01/2015 [facility] HEMATOLOGY WBC 16.3 K/CMM 3.7 - 10.4 10/01/2015 [facility] HEMATOLOGY RDW 13.8 % 11.5 - 14.5 10/01/2015 [facility] HEMATOLOGY RBC 4.49 M/CMM 4.70 - 6.10 10/01/2015 [facility] HEMATOLOGY Hgb 13.8 g/dL 14.0 - 18.0 10/01/2015 [facility] HEMATOLOGY Monocytes # 1.0 K/CMM 0.0 - 0.8 10/01/2015 [facility] HEMATOLOGY Segs-Bands # 14.2 K/CMM 1.5 - 8.1 10/01/2015 [facility] HEMATOLOGY Lymphocytes # 0.9 K/CMM 1.0 - 5.5 10/01/2015 [facility] HEMATOLOGY Eosinophils 0.2 % 0.0 - 4.0 10/01/2015 [facility] HEMATOLOGY Basophils 0.3 % 0.0 - 1.0 10/01/2015 [facility] HEMATOLOGY Segs 87.4 % 45.0 - 75.0 10/01/2015 [facility] HEMATOLOGY Lymphocytes 5.8 % 20.0 - 40.0 10/01/2015 [facility] HEMATOLOGY Monocytes 6.3 % 2.0 - 12.0 10/01/2015 [facility] MYOGLOBIN Myoglobin 228 ng/mL 25 - 72 10/01/2015 [facility] Brain wo contrast CT Brain wo contrast CT EXAM: CT BRAIN WITHOUT CONTRAST DATE: 09/30/2015 9:34 PM CDT INDICATION: Lethargy COMPARISON:Brain CT dated 04/24/2009 TECHNIQUE: Routine axial CT images of the brain were obtained, with reformatted images in the sagittal and coronal plane. DLP: 1247 mGy-cm FINDINGS: Multiple areas of low attenuation in the periventricular and subcortical white matter, consistent with microvascular ischemic changes are identified. There is an area of encephalomalacia in the right cerebellum anteriorly. The ventricles and sulci are prominent as are result of volume loss. There are atherosclerotic changes at the carotid siphons. The paranasal sinuses, the orbits and mastoids are unremarkable. IMPRESSION: 1. No acute intracranial abnormality. 2. Microvascular ischemic changes and volume loss. 3. Encephalomalacia in the right cerebellum. 09/30/2015 - - Read by: Luz Poe Dictated Date/time: 10/01/15 08:27 Electronically Signed by: Luz Poe 10/01/15 08:29 FINAL REPORT [facility] Chest 1view DX Chest 1view DX EXAM: XR CHEST 1 VIEW DATE: 09/30/2015 9:38 PM CDT INDICATION: Syncope COMPARISON: Chest radiograph 04/27/2009 TECHNIQUE: AP chest FINDINGS: No pulmonary or pleural-based abnormality is identified. Mildly tortuous aorta. Pulmonary vascularity is normal. The heart size is normal for technique. No acute bony abnormality is identified. IMPRESSION: No acute cardiopulmonary abnormality. 09/30/2015 - - Read by: Pool Aponte MD Dictated Date/time: 09/30/15 22:39 Electronically Signed by: Pool Aponte MD 09/30/15 22:40 FINAL REPORT [facility] Vital Signs Vital Sign Value Date Comments Source Systolic (mm Hg) 130 05/25/2017 [facility] Diastolic (mm Hg) 57 05/25/[address] [facility] Respitory Rate 16 05/25/[address] [facility] Heart Rate 48 05/25/[address] [facility] Temperature Oral (F) 98.3 F 05/25/[address] [facility] Respitory Rate 18 05/25/[address] [facility] Systolic (mm Hg) 129 05/25/[address] [facility] Diastolic (mm Hg) 51 05/25/[address] [facility] Temperature Oral (F) 98.4 F 05/25/[address] [facility] Heart Rate 55 05/25/[address] [facility] Heart Rate 57 05/25/[address] [facility] Temperature Oral (F) 98.7 F 05/25/[address] [facility] Respitory Rate 18 05/25/[address] [facility] Systolic (mm Hg) 137 05/25/[address] [facility] Diastolic (mm Hg) 70 05/25/[address] [facility] Weight 103.9 05/23/[address] [facility] BMI Calculated 30.22 05/23/[address] [facility] Height 185.42 cm 05/23/[address] [facility] Weight 104.545 05/22/[address] [facility] BMI Calculated 29.59 05/22/[address] [facility] Height 187.96 cm 05/22/[address] [facility] Systolic (mm Hg) 110 10/02/2015 [facility] Diastolic (mm Hg) 51 10/02/2015 [facility] Temperature Oral (F) 97.3 F 10/02/2015 [facility] Respitory Rate 18 10/02/2015 [facility] Heart Rate 51 10/02/2015 [facility] Systolic (mm Hg) 101 10/02/2015 [facility] Diastolic (mm Hg) 54 10/02/2015 [facility] Respitory Rate 18 10/02/2015 [facility] Temperature Oral (F) 97 F 10/02/2015 [facility] Temperature Oral (F) 97.4 F 10/02/2015 [facility] Systolic (mm Hg) 108 10/02/2015 [facility] Diastolic (mm Hg) 50 10/02/2015 [facility] Respitory Rate 18 10/02/2015 [facility] BMI Calculated 29.76 10/01/2015 [facility] Weight 99.545 10/01/2015 [facility] Height 182.88 cm 10/01/2015 [facility] BMI Calculated 27.18 10/01/2015 [facility] Height 182.88 cm 10/01/2015 [facility] Heart Rate 78 10/01/2015 [facility] Weight 90.909 10/01/2015 [facility] Encounters Location Location Details Encounter Type Encounter Number Reason For Visit Attending Provider ADM Date DC Date Status Source [facility] OBS Observation Patient [id number] Mikhail Mouser 10/01/2015 10/02/2015 [facility] Inpatient [id number] Anjum Brandon 05/22/2017 05/25/[address] [facility] Procedures Procedure Code Date Perfomer Comments Source
--- OUTSIDE RECORDS SUMMARY | 2018-06-12 12:33 | XMS REPORT | Clinical Summary ---
Author Author [facility] Organization [facility] Address Unknown Phone Unavailable Care Team Providers Care Supervisor Line Department Name Role Phone Timo Heard MD PCP Allergies Comments Active Allergy Reactions Severity Noted Date Childhood allergy Iodine 06/02/2017 Medications End Date Status Medication Sig Dispensed Refills Start Date Active citalopram (CeleXA) 40 MG Take 40 mg by 0 tablet mouth every morning. Active sertraline (ZOLOFT) 100 Take 100 mg 0 MG tablet by mouth 8 every morning. Active clopidogrel (PLAVIX) 75 Take 75 mg by 0 mg tablet mouth every morning. Active lansoprazole (PREVACID) Take 30 mg by 0 30 MG capsule mouth daily before breakfast. Active simvastatin (ZOCOR) 80 MG Take 80 mg by 0 tablet mouth every morning. Active multivitamin with Take 1 tablet 0 minerals tablet by mouth every morning. Active tamsulosin (FLOMAX) 0.4 Take 0.4 mg 0 mg capsule,extended by mouth release 24hr every morning. Active promethazine (PHENERGAN) Take 25 mg by 0 25 MG tablet mouth every 6 (six) hours as needed for nausea or vomiting. Active ascorbic acid, vitamin C, Take 500 mg 0 (VITAMIN C) 500 MG tablet by mouth every morning. 09/04/2017 Discontinued lansoprazole (PREVACID) TAKE 1 0 30 MG capsule CAPSULE 7 BEFORE A MEAL ONCE A DAY ORALLY 09/04/2017 Discontinued simvastatin (ZOCOR) 80 MG TAKE TAKE 1 2 tablet TABLET BY 7 MOUTH EVERY DAY 09/04/2017 Discontinued carisoprodol (SOMA) 350 TAKE 1 TABLET 0 MG tablet BY MOUTH 8 TWICE A DAY NEEDED MUSCLE SPASMS 09/04/2017 Discontinued clopidogrel (PLAVIX) 75 TAKE TAKE 1 1 mg tablet TABLET BY 7 MOUTH EVERY DAY ONCE A DAY ORALLY 09/04/2017 Discontinued cyclobenzaprine TAKE 1 TO 2 0 (FLEXERIL) 5 mg tablet TABLETS BY 7 MOUTH 3 TIMES A DAY NEEDED FOR MUSCLE SPASMS 09/04/2017 Discontinued diazePAM (VALIUM) 10 MG 0 tablet 8 09/04/2017 Discontinued montelukast (SINGULAIR) Take 10 mg by 1 10 mg tablet mouth daily 8 as needed. 09/04/2017 Discontinued tiZANidine (ZANAFLEX) 4 TAKE 1-2 0 MG tablet TABLETS EVERY 8 8 HOURS NEEDED FOR MUSCLE SPASM Active Problems Problem Noted Date Altered mental status 09/04/2017 Lactic acidosis 03/14/2017 Cervical spinal stenosis 02/14/2017 Encounters Care Team Description Date Type Specialty Raya Wheat MD Thyroid cyst (Primary Dx); Thyroid nodule 06/11/2018 Transcribe Access Orders Timo Heard MD 05/21/2018 Hospital Radiology Encounter Timo Heard MD 05/20/2018 Hospital Radiology Encounter Timo Heard MD Thyroid nodule 05/20/2018 Hospital Radiology Encounter Timo Heard MD Thyroid nodule (Primary Dx) 05/11/2018 Transcribe Access Orders Howard Corona MD Bernick, James Jay, MD Altered mental status, unspecified altered mental status type (Primary Dx) 09/04/2017 Emergency Emergency Medicine after 06/11/2017 Family History Medical History Relation Name Comments No Known Problems Father No Known Problems Mother Relation Name Status Comments Father Mother Social History Date Tobacco Use Types Packs/Day Years Used Quit: 1976 Former Smoker Cigarettes 1 5 Smokeless Tobacco: Never Used Tobacco Cessation: Counseling Given: No Alcohol Use Drinks/Week oz/Week Comments Yes SOCIALLY Sex Assigned at Date Recorded Not on file Industry Job Start Date Occupation Not on file Not on file Not on file Travel End Travel History Travel Start No recent travel history available. Last Filed Vital Signs Time Taken Vital Sign Reading 09/04/2017 2:45 PM CDT Blood Pressure 156/67 09/04/2017 3:00 PM CDT Pulse 56 09/04/2017 11:01 AM CDT Temperature 37.1 C (98.7 F) 09/04/2017 3:00 PM CDT Respiratory Rate 19 09/04/2017 3:00 PM CDT Oxygen Saturation 95% - Inhaled Oxygen - Concentration - Weight - 09/04/2017 10:56 AM CDT Height 182.9 cm (6') - Body Mass Index - Plan of Treatment Care Team Description Date Type Specialty Evaristo Darling MD [address], [address] [place] [address] [phone] 06/16/2018 Office Visit Wound Care Raya Wheat MD [address] [place] [address] [phone] 06/17/2018 Appointment Radiology Health Maintenance Due Date Last Done Comments COLON CANCER SCREENING 1994 SHINGLES VACCINES (#1) 1994 65+ PNEUMOCOCCAL VACCINE 2009 (1 of 2 - PCV13) PNEUMOCOCCAL 2009 POLYSACCHARIDE VACCINE AGE 65 AND OVER INFLUENZA VACCINE 11/19/2017 Procedures Comments Procedure Name Priority Date/Time Associated Diagnosis NM THYROID UPTAKE AND Routine 05/21/2018 Thyroid nodule SCAN SINGLE OR MULTIPLE 10:47 AM STORE DETECTIVE TROPONIN Timed 09/04/2017 3:36 PM CDT XR CHEST 1 VW PORTABLE STAT 09/04/2017 2:11 PM CDT MRA NECK WO CONTRAST STAT 09/04/2017 12:50 PM CDT MRA HEAD WO CONTRAST STAT 09/04/2017 12:50 PM CDT MRI BRAIN WO CONTRAST STAT 09/04/2017 12:49 PM CDT ECG 12-LEAD STAT 09/04/2017 11:26 AM CDT ECG ED PRELIMINARY Routine 09/04/2017 INTERPRETATION 11:[address] STROKE BRAIN WO STAT 09/04/2017 CONTRAST 11:18 AM CDT COMPREHENSIVE METABOLIC STAT 09/04/2017 PANEL 11:04 AM CDT ZZESTIMATED GFR STAT 09/04/2017 11:04 AM CDT TROPONIN STAT 09/04/2017 11:04 AM CDT BASIC METABOLIC PANEL STAT 09/04/2017 11:04 AM CDT PARTIAL THROMBOPLASTIN STAT 09/04/2017 TIME (PTT) 11:04 AM CDT PROTHROMBIN TIME WITH INR STAT 09/04/2017 11:04 AM CDT HC COMPLETE BLD COUNT STAT 09/04/2017 W/AUTO DIFF 11:04 AM CDT after 06/11/2017 Results * NM Thyroid Uptake And Scan Single Or Multiple (05/21/2018 10:47 AM STORE DETECTIVE) Narrative Performed At EXAMINATION: NM THYROID UPTAKE AND SCAN SINGLE OR MULTIPLE [facility] CLINICAL HISTORY:E04.1 Nontoxic single thyroid nodule, thyroid nodule TECHNIQUE: The patient was given 280 uCi of I-123 Cassandra orally. 4 hours later, thyroid uptake was measured using a dedicated thyroid probe. 24 hours later, thyroid uptake was again performed, followed by planar imaging of the neck and upper chest in the anterior projection. FINDINGS: Normal uptake in the thyroid bilaterally. 4 hour radioiodine uptake=4% (normal=5-10%) 24 hour radioiodine uptake=19% (normal=10-25%) IMPRESSION: Essentially normal thyroid uptake and scan. A cold nodule cannot entirely be excluded in the left upper pole. Please note that modern evaluation of thyroid nodules is much better done with ultrasound. In patients with a suppressed TSH, a nuclear thyroid scan may identify a hot (autonomous) nodule to explain the hyperthyroidism. [facility]-[id number] Procedure Note Interface, Radiology Results Incoming - 05/21/2018 11:38 AM STORE DETECTIVE EXAMINATION: NM THYROID UPTAKE AND SCAN SINGLE OR MULTIPLE CLINICAL HISTORY: E04.1 Nontoxic single thyroid nodule, thyroid nodule TECHNIQUE: The patient was given 280 uCi of I-123 Cassandra orally. 4 hours later, thyroid uptake was measured using a dedicated thyroid probe. 24 hours later, thyroid uptake was again performed, followed by planar imaging of the neck and upper chest in the anterior projection. FINDINGS: Normal uptake in the thyroid bilaterally. 4 hour radioiodine uptake=4% (normal=5-10%) 24 hour radioiodine uptake=19% (normal=10-25%) IMPRESSION: Essentially normal thyroid uptake and scan. A cold nodule cannot entirely be excluded in the left upper pole. Please note that modern evaluation of thyroid nodules is much better done with ultrasound. In patients with a suppressed TSH, a nuclear thyroid scan may identify a hot (autonomous) nodule to explain the hyperthyroidism. [facility]-[id number] Performing Organization Address City/[facility]/Zipcode Phone Number [facility] [address] [place] [address] * Troponin (09/04/2017 3:36 PM CDT) Only the most recent of 2 results within the time period is included. Troponin <0.01 0.00 - 0.60 ng/mL [facility] DEPARTMENT OF Comment: PATHOLOGY AND 0.11 - 1.49 GENOMIC MEDICINE ng/mlMay indicate increased risk of acute coronary syndrome. >=1.5 ng/ml Consistent with acute myocardial infarction. The diagnostic value of a single normal or non-diagnostic result is questionable.Serial samples at 2-6 hour intervals are required to rule out acute myocardial injury. Specimen Plasma specimen Performing Organization Address City/[facility] Phone Number [facility] DEPARTMENT [facility] [place] [address] PATHOLOGY AND GENOMIC MEDICINE * XR Chest 1 Vw Portable (09/04/2017 2:11 PM CDT) Narrative Performed At EXAMINATION:XR CHEST 1 VW PORTABLE [facility] CLINICAL HISTORY:Chest Pain COMPARISON:03/15/2017 IMPRESSION: 1.The heart size is normal. 2.There is no evidence pulmonary edema. Minimal subsegmental atelectasis is present at the left lung base. There are no pleural effusions. [facility]-[id number] Procedure Note Interface, Radiology Results Incoming - 09/04/2017 2:20 PM CDT EXAMINATION: XR CHEST 1 VW PORTABLE CLINICAL HISTORY: Chest Pain COMPARISON: 03/15/2017 IMPRESSION: 1. The heart size is normal. 2. There is no evidence pulmonary edema. Minimal subsegmental atelectasis is present at the left lung base. There are no pleural effusions. [facility]-[id number] Performing Organization Address City/[facility]/Zipcode Phone Number [facility] [address] [place] [address] * MRA Neck Wo Contrast (09/04/2017 12:50 PM CDT) Narrative Performed At EXAMINATION: MRA NECK WO CONTRAST [facility] CLINICAL [facility]: ams COMPARISON:None TECHNIQUE: 2-D and 3-D [id number] MRA images of the cervical vessels were obtained with multiplanar and 3-D reconstructive algorithms. FINDINGS: Aortic Arch: MRA examination shows a left-sided aortic arch with normal branching pattern , there is no evidence of aortic dissection, aneurysms, penetrating ulcer or coarctation. Bilateral common carotid arteries: There is no evidence of flow-limiting stenosis, occlusion, dissection, aneurysms, pseudoaneurysms or vascular malformations. Bilateral carotid bifurcations and cervical ICAs: Shows no evidence of flow-limiting stenosis (by NASCET criteria) , occlusion, dissection, aneurysms, pseudoaneurysms or vascular malformations. Bilateral vertebral arteries: Shows no evidence for flow-limiting stenosis, occlusion, dissection, aneurysms, pseudoaneurysms or vascular malformations. IMPRESSION: Negative for cervical arterial flow-limiting stenosis (by NASCET criteria) , occlusion, dissection, aneurysms, pseudoaneurysms or vascular malformations. [id number] Procedure Note Interface, Radiology Results Incoming - 09/04/2017 1:04 PM CDT EXAMINATION: MRA NECK WO CONTRAST CLINICAL HISTORY: ams COMPARISON: None TECHNIQUE: 2-D and 3-D [id number] MRA images of the cervical vessels were obtained with multiplanar and 3-D reconstructive algorithms. FINDINGS: Aortic Arch: MRA examination shows a left-sided aortic arch with normal branching pattern , there is no evidence of aortic dissection, aneurysms, penetrating ulcer or coarctation. Bilateral common carotid arteries: There is no evidence of flow-limiting stenosis, occlusion, dissection, aneurysms, pseudoaneurysms or vascular malformations. Bilateral carotid bifurcations and cervical ICAs: Shows no evidence of flow- limiting stenosis (by NASCET criteria) , occlusion, dissection, aneurysms, pseudoaneurysms or vascular malformations. Bilateral vertebral arteries: Shows no evidence for flow-limiting stenosis, occlusion, dissection, aneurysms, pseudoaneurysms or vascular malformations. IMPRESSION: Negative for cervical arterial flow-limiting stenosis (by NASCET criteria) , occlusion, dissection, aneurysms, pseudoaneurysms or vascular malformations. [id number] Performing Organization Address City/State/Zipcode Phone Number [facility] [address] [place] [address] * MRA Head Wo Contrast (09/04/2017 12:50 PM CDT) Narrative Performed At EXAMINATION: MRA HEAD WO CONTRAST [facility] CLINICAL H[facility]ORY: ams COMPARISON:None TECHNIQUE: [id number] MRA images of the chenega of Purvis vessels were obtained with multiplanar and 3-D reconstructive algorithms. FINDINGS: Assessment of individual intracranial arteries demonstrate the following: Anterior circulation: - Intracranial right ICA: There is no hemodynamically significant stenosis or aneurysm. - Right middle cerebral artery: There is no hemodynamically significant stenosis or aneurysm. - Right anterior cerebral artery: There is no hemodynamically significant stenosis or aneurysm. - Intracranial left ICA:There is no hemodynamically significant stenosis or aneurysm. - Left middle cerebral artery: There is no hemodynamically significant stenosis or aneurysm. - Left anterior cerebral artery:There is no hemodynamically significant stenosis or aneurysm. Posterior circulation: - Basilar artery: There is no hemodynamically significant stenosis or aneurysm - Right CAGE UNLOADER: Patent. - Left CAGE UNLOADER: Patent. - Bilateral superior cerebral arteries: There is no hemodynamically significant stenosis or aneurysm . - Bilateral anterior inferior cerebellar arteries: Patent.There is no hemodynamically significant stenosis or aneurysm. - Bilateral PICAs: Partially visualized and patent. - Intradural segment of the vertebral arteries:There is no hemodynamically significant stenosis or aneurysm. IMPRESSION: There is no evidence of intracranial flow-limiting stenosis, occlusion, aneurysm or dissection. [id number] Procedure Note Interface, Radiology Results Incoming - 09/04/2017 1:07 PM CDT EXAMINATION: MRA HEAD WO CONTRAST CLINICAL HISTORY: ams COMPARISON: None TECHNIQUE: [id number] MRA images of the chenega of Purvis vessels were obtained with multiplanar and 3-D reconstructive algorithms. FINDINGS: Assessment of individual intracranial arteries demonstrate the following: Anterior circulation: - Intracranial right ICA: There is no hemodynamically significant stenosis or aneurysm. - Right middle cerebral artery: There is no hemodynamically significant stenosis or aneurysm. - Right anterior cerebral artery: There is no hemodynamically significant stenosis or aneurysm. - Intracranial left ICA:There is no hemodynamically significant stenosis or aneurysm. - Left middle cerebral artery: There is no hemodynamically significant stenosis or aneurysm. - Left anterior cerebral artery:There is no hemodynamically significant stenosis or aneurysm. Posterior circulation: - Basilar artery: There is no hemodynamically significant stenosis or aneurysm - Right CAGE UNLOADER: Patent. - Left CAGE UNLOADER: Patent. - Bilateral superior cerebral arteries: There is no hemodynamically significant stenosis or aneurysm . - Bilateral anterior inferior cerebellar arteries: Patent.There is no hemodynamically significant stenosis or aneurysm. - Bilateral PICAs: Partially visualized and patent. - Intradural segment of the vertebral arteries:There is no hemodynamically significant stenosis or aneurysm. IMPRESSION: There is no evidence of intracranial flow-limiting stenosis, occlusion, aneurysm or dissection. [id number] Performing Organization Address City/State/Zipcode Phone Number [facility] [address] [place] [address] * MRI Brain Wo Contrast (09/04/2017 12:49 PM CDT) Narrative Performed At [facility] EXAMINATION:MRI BRAIN WO CONTRAST CLINICAL HISTORY:ams COMPARISON:None. Technique: Multiplanar and multisequence MRI images of the brain are obtained without the use of ionic intravenous contrast. Sagittal axial and coronal images are obtained. Diffusion weighted sequences are performed. No intravenous contrast was given. Findings: Diffusion weighted images demonstrates no evidence of any acute infarction. The visualized paranasal sinuses are clear.The globes and optic nerves are unremarkable. The posterior fossa does not demonstrate any masses. The usman and midbrain did not demonstrate any masses. The ventricles are symmetrical without any mass effect. There is no evidence of any midline shift. There is no extra-axial fluid collection. The cerebral hemispheres demonstrate no intracranial hemorrhage or mass lesion. Mild periventricular ischemic white matter changes are present. The sella turcica is not enlarged. Visualized portion of the upper cervical cord demonstrates no abnormality. IMPRESSION: 1.No acute intracranial abnormalities or mass lesions. 2. Mild periventricular ischemic white matter changes are present. [id number] Procedure Note Interface, Radiology Results [facility] - 09/04/2017 1:01 PM CDT EXAMINATION: MRI BRAIN WO CONTRAST CLINICAL HISTORY: ams COMPARISON: None. Technique: Multiplanar and multisequence MRI images of the brain are obtained without the use of ionic intravenous contrast. Sagittal axial and coronal images are obtained. Diffusion weighted sequences are performed. No intravenous contrast was given. Findings: Diffusion weighted images demonstrates no evidence of any acute infarction. The visualized paranasal sinuses are clear. The globes and optic nerves are unremarkable. The posterior fossa does not demonstrate any masses. The usman and midbrain did not demonstrate any masses. The ventricles are symmetrical without any mass effect. There is no evidence of any midline shift. There is no extra-axial fluid collection. The cerebral hemispheres demonstrate no intracranial hemorrhage or mass lesion. Mild periventricular ischemic white matter changes are present. The sella turcica is not enlarged. Visualized portion of the upper cervical cord demonstrates no abnormality. IMPRESSION: 1. No acute intracranial abnormalities or mass lesions. 2. Mild periventricular ischemic white matter changes are present. [id number] Performing Organization Address [facility] Centercovt Phone Number [facility] [address] [place] [address] * ECG 12 lead (09/04/2017 11:26 AM CDT) Ventricular rate 51 [facility] Atrial rate 51 [facility] MO interval 182 [facility] QRSD interval 86 [facility] QT interval 412 [facility] QTC interval 379 [facility] P axis 1 30 [facility] QRS axis 1 -2 [facility] T wave axis 41 [facility] EKG impression Sinus bradycardia-Otherwise [facility] MUSE normal ECG-In automated comparison with ECG of 14-MAR-2017 14:46,-Sinus rhythm has replaced Ectopic atrial rhythm-Vent. rate has decreased BY 31 BPM- Performing Organization Address [facility]ovt Phone Number [facility] MUSE [address] [place] [address] * ECG ED Preliminary Interpretation - NOT AN ORDER (09/04/2017 11:20 AM CDT) Narrative Performed At Howard Corona MD 09/05/20171:10 PM ECG ED Preliminary Interpretation - Not an Order Performed by: HOWARD CORONA Authorized by: HOWARD CORONA Rate: ECG rate:51 ECG rate assessment: bradycardic Rhythm: Rhythm: sinus bradycardia QRS: QRS axis:Normal ST segments: ST segments:Normal * CT Stroke Brain Wo Contrast (09/04/2017 11:18 AM CDT) Narrative Performed At EXAMINATION: CT STROKE BRAIN WO CONTRAST [facility] CLINICAL HISTORY: CONFUSION DELERIUMALTERED LOCUNEXPLAINED COMPARISON:None TECHNIQUE: Noncontrast CT of the brain was performed. Both soft tissue and bone reconstruction algorithms are interpreted. CT imaging was performed with iterative reconstruction techniques and/or automated exposure control to reduce radiation dose. FINDINGS: No acute cortical infarct is identified. No intracranial hemorrhage, extra-axial collection, mass effect or hyperdense vessel is seen. There is no acute hydrocephalus. Mild nonspecific lucency in the cerebral white matter likely reflects chronic small vessel ischemic change. Involutional changes of the brain are noted. Visualized portions of the paranasal sinuses show no air-fluid level. Mastoid air cells are clear. No fracture or aggressive bony lesion is seen. IMPRESSION: No acute intracranial abnormality identified. Findings were discussed with Dr. HOWARD CORONA at 09/04/2017 11:10 AM who verbalized understanding. [facility]-[id number] Procedure Note Interface, Radiology Results Incoming - 09/04/2017 11:30 AM CDT EXAMINATION: CT STROKE BRAIN WO CONTRAST CLINICAL HISTORY: CONFUSION DELERIUM ALTERED LOC UNEXPLAINED COMPARISON: None TECHNIQUE: Noncontrast CT of the brain was performed. Both soft tissue and bone reconstruction algorithms are interpreted. CT imaging was performed with iterative reconstruction techniques and/or automated exposure control to reduce radiation dose. FINDINGS: No acute cortical infarct is identified. No intracranial hemorrhage, extra-axial collection, mass effect or hyperdense vessel is seen. There is no acute hydrocephalus. Mild nonspecific lucency in the cerebral white matter likely reflects chronic small vessel ischemic change. Involutional changes of the brain are noted. Visualized portions of the paranasal sinuses show no air-fluid level. Mastoid air cells are clear. No fracture or aggressive bony lesion is seen. IMPRESSION: No acute intracranial abnormality identified. Findings were discussed with Dr. HOWARD CORONA at 09/04/2017 11:10 AM who verbalized understanding. [facility]-[id number] Performing Organization Address City/State/Zipcode Phone Number [facility] [address] [place] [address] * Estimated GFR (09/04/2017 11:04 AM CDT) GFR Non Af Amer 54 (A) mL/min/1.73 m2 [facility] DEPARTMENT OF PATHOLOGY AND GENOMIC MEDICINE GFR Af Amer 66 mL/min/1.73 m2 [facility] DEPARTMENT OF Comment: PATHOLOGY AND Chronic kidney disease: <60 GENOMIC MEDICINE mL/min/1.73m2 Kidney failure: <15 mL/min/1.73m2 The estimated GFR is calculated from the IDMS-traceable Modification of Diet in Renal Disease Equation. The accuracy of the calculation is poor when the creatinine is normal. Calculated values >90 mL/min/1.73m2 are not reported. This equation has not been validated in children (<18 years), women, the elderly (>70 years), or ethnic groups other than Caucasians and Americans. Specimen Plasma specimen Performing Organization Address [facility] Centercode Phone Number [facility] [address] [place] [address]. [place] [address] PATHOLOGY AND [facility] * Partial thromboplastin time, activated (09/04/2017 11:04 AM CDT) PTT 30.4 23.0 - 36.0 sec [facility] DEPARTMENT OF Comment: PATHOLOGY AND PTT therapeutic range for GENOMIC MEDICINE unfractionated heparin is 61.0-112.0 seconds which corresponds to Anti-Xa 0.3-0.7 U/ml. Note:Change in Panic Value The PTT Panic Value is changing from 110 sec. to 100 sec. due to new instrumentation and reagents. Correlation studies have been performed to validate this result. Specimen Blood Performing Organization Address [facility] [place] [address] PATHOLOGY [facility] * Prothrombin time with INR (09/04/2017 11:04 AM CDT) Prothrombin time 13.7 12.0 - 15.0 sec [facility] DEPARTMENT OF PATHOLOGY AND [facility] INR 1.04 0.92 - 1.12 [facility] DEPARTMENT OF Comment: PATHOLOGY AND For patients on anticoagulant GENOMIC MEDICINE therapy, reference ranges below: Indication: INR Value Treatment of Venous Thrombosis, 2.0-3.0 pulmonary emboli, or prophylaxis of a venous thrombosis, or systemic emboli. High dose, high risk patients 3.0-4.5 with mechanical valves. NOTE:INR values over 3.0 are sometimes associated with gastrointestinal hemorrhage, especially values over 4.0. Specimen Blood Performing Organization Address [facility] Centercode Phone Number 25 [place] [address] PATHOLOGY AND [facility] * CBC with platelet and differential (09/04/2017 11:04 AM CDT) WBC 8.2 4.2 - 11.0 k/uL [facility] DEPARTMENT OF PATHOLOGY AND [facility] MEDICINE RBC 4.19 4.04 - 5.86 m/uL [facility] DEPARTMENT OF PATHOLOGY AND [facility] MEDICINE HGB 12.9 (L) 13.0 - 17.3 g/dL [facility] DEPARTMENT OF PATHOLOGY AND GENOMIC MEDICINE HCT 40.1 34.0 - 45.0 % [facility] DEPARTMENT OF PATHOLOGY AND GENOMIC MEDICINE MCV 95.7 80.0 - 98.0 fL [facility] DEPARTMENT OF PATHOLOGY AND GENOMIC MEDICINE MCH 30.8 27.0 - 34.0 pg [facility] DEPARTMENT OF PATHOLOGY AND GENOMIC MEDICINE MCHC 32.2 31.5 - 36.5 g/dL [facility] DEPARTMENT OF PATHOLOGY AND GENOMIC MEDICINE RDW - SD 47.1 37.0 - 51.0 fL [facility] DEPARTMENT OF PATHOLOGY AND GENOMIC MEDICINE MPV 11.4 (H) 7.4 - 10.4 fL [facility] DEPARTMENT OF PATHOLOGY AND GENOMIC MEDICINE Platelet count 128 (L) 150 - 400 k/uL [facility] DEPARTMENT OF PATHOLOGY AND GENOMIC MEDICINE Nucleated RBC 0.00 /100 WBC [facility] DEPARTMENT OF PATHOLOGY AND GENOMIC MEDICINE Neutrophils 78.0 (H) 36.0 - 66.0 % [facility] DEPARTMENT OF PATHOLOGY AND GENOMIC MEDICINE Lymphocytes 15.5 (L) 24.0 - 44.0 % [facility] DEPARTMENT OF PATHOLOGY AND GENOMIC MEDICINE Monocytes 5.5 0.0 - 6.0 % [facility] DEPARTMENT OF PATHOLOGY AND GENOMIC MEDICINE Eosinophils 0.0 0.0 - 6.0 % [facility] DEPARTMENT OF PATHOLOGY AND GENOMIC MEDICINE Basophils 0.5 0.0 - 1.2 % [facility] DEPARTMENT OF PATHOLOGY AND GENOMIC MEDICINE Immature granulocytes 0.5 0.0 - 1.0 % [facility] DEPARTMENT OF PATHOLOGY AND GENOMIC MEDICINE Performing Organization Address City/State/Zipcode Phone Number [place] [phone] [place] [address] PATHOLOGY AND GENOMIC MEDICINE * Comprehensive metabolic panel (09/04/2017 11:04 AM CDT) Sodium 145 135 - 150 mEq/L [facility] DEPARTMENT OF PATHOLOGY AND GENOMIC MEDICINE Potassium 3.8 3.5 - 5.0 mEq/L [facility] DEPARTMENT OF PATHOLOGY AND GENOMIC MEDICINE Chloride 111 (H) 100 - 109 mEq/L [facility] DEPARTMENT OF PATHOLOGY AND GENOMIC MEDICINE CO2 25 24 - 32 mmol/L [facility] DEPARTMENT OF PATHOLOGY AND GENOMIC MEDICINE Anion gap 9@ANIO 7 - 15 mEq/L [facility] DEPARTMENT OF PATHOLOGY AND GENOMIC MEDICINE BUN 11 7 - 18 mg/dL [facility] DEPARTMENT OF PATHOLOGY AND GENOMIC MEDICINE Creatinine 1.3 0.8 - 1.5 mg/dL [facility] DEPARTMENT OF PATHOLOGY AND GENOMIC MEDICINE Glucose 111 (H) 65 - 100 mg/dL [facility] DEPARTMENT OF PATHOLOGY AND GENOMIC MEDICINE Calcium 9.8 8.6 - 10.7 mg/dL [facility] DEPARTMENT OF PATHOLOGY AND GENOMIC MEDICINE Protein 6.8 6.3 - 8.2 g/dL [facility] DEPARTMENT OF PATHOLOGY AND GENOMIC MEDICINE Albumin 3.3 3.2 - 5.0 g/dL [facility] DEPARTMENT OF PATHOLOGY AND GENOMIC MEDICINE A/G ratio 0.9 0.7 - 3.8 [facility] DEPARTMENT OF PATHOLOGY AND GENOMIC MEDICINE Alkaline phosphatase 95 30 - 120 U/L [facility] DEPARTMENT OF PATHOLOGY AND GENOMIC MEDICINE AST 19 15 - 37 U/L [facility] DEPARTMENT OF PATHOLOGY AND GENOMIC MEDICINE ALT 17 (L) 30 - 65 U/L [facility] DEPARTMENT OF PATHOLOGY AND GENOMIC MEDICINE Total bilirubin 0.6 0.2 - 1.2 mg/dL [facility] DEPARTMENT OF PATHOLOGY AND GENOMIC MEDICINE Specimen Plasma specimen Performing Organization Address City/[facility] Phone Number [place] [phone] [place] [address] PATHOLOGY AND GENOMIC MEDICINE * Basic metabolic panel (09/04/2017 11:04 AM CDT) Sodium 145 135 - 150 mEq/L [facility] DEPARTMENT OF PATHOLOGY AND GENOMIC MEDICINE Potassium 3.8 3.5 - 5.0 mEq/L [facility] DEPARTMENT OF PATHOLOGY AND GENOMIC MEDICINE Chloride 111 (H) 100 - 109 mEq/L [facility] DEPARTMENT OF PATHOLOGY AND GENOMIC MEDICINE CO2 25 24 - 32 mmol/L [facility] DEPARTMENT OF PATHOLOGY AND GENOMIC MEDICINE Anion gap 9@ANIO 7 - 15 mEq/L [facility] DEPARTMENT OF PATHOLOGY AND GENOMIC MEDICINE BUN 11 7 - 18 mg/dL [facility] DEPARTMENT OF PATHOLOGY AND GENOMIC MEDICINE Creatinine 1.3 0.8 - 1.5 mg/dL [facility] DEPARTMENT OF PATHOLOGY AND GENOMIC MEDICINE Glucose 111 (H) 65 - 100 mg/dL [facility] DEPARTMENT OF PATHOLOGY AND GENOMIC MEDICINE Calcium 9.8 8.6 - 10.7 mg/dL [facility] DEPARTMENT OF PATHOLOGY AND GENOMIC MEDICINE Specimen Plasma specimen Performing Organization Address City/[facility] Cent[facility]ode Phone Number [address] [place] [address] PATHOLOGY AND GENOMIC MEDICINE after 06/11/2017 Insurance Payer Benefit Subscriber ID Type Phone Address Plan / Group MEDICARE MEDICARE xxxxxxxxxx Medicare [place], [place] PART A AND B AETNA AETNA xxxxxxxxxx HMO HMO,POS,EP O, MC/EC Advance Directives Patient has advance care planning documents on file. For more information, johanna e contact: Collin Rosales [address] [place] [address]
--- OUTSIDE RECORDS SUMMARY | 2018-06-12 12:34 | XMS REPORT | Summary of Care ---
Author Author [facility] Organization [facility] Address Unknown Phone Unavailable Encounter ANNEMARIE Galeas(KAYLENE) [id number] Date(s): 09/30/15 - 10/02/15 [facility] [address] [employer] provided by [facility] [employer] [facility] [employer] [place] [address]- Discharge Disposition: Home Attending Physician: Mikhail Johnston MD Admitting Physician: Mikhail Johnston MD Vital Signs 1 2 3 Most recent to oldest [Reference Range]: 182.88 cm (10/01/15 1:12 AM) 182.88 cm (09/30/15 8:53 PM) Height 97.3 DegF (10/02/15 7:29 AM) 97 DegF (10/02/15 4:21 AM) 97.4 DegF (10/01/15 11:44 PM) Temperature Oral [96.4-99.1 DegF] 110/51 mmHg (10/02/15 7:29 AM) 101/54 mmHg (10/02/15 4:21 AM) 108/50 mmHg (10/01/15 11:44 PM) Blood Pressure [90-140/60-90 mmHg] 18 BRMIN (10/02/15 7:29 AM) 18 BRMIN (10/02/15 4:21 AM) 18 BRMIN (10/01/15 11:44 PM) Respiratory Rate [14-20 BRMIN] 51 bpm *LOW* (10/02/15 7:29 AM) 78 bpm (09/30/15 8:53 PM) Peripheral Pulse Rate [60-100 bpm] 99.545 kg (10/01/15 1:12 AM) 90.909 kg (09/30/15 8:53 PM) Weight 29.76 m2 (10/01/15 1:12 AM) 27.18 m2 (09/30/15 8:53 PM) Body Mass Index Problem List Condition Effective Dates Status Health Status Informant Depression(Confirmed Active ) GI bleed(Confirmed) Active HTN Resolved (hypertension)(Confi rmed) Hyperlipidemia(Confi Active rmed) Hypertension(Confirm Active ed) AL (myocardial Active infarction)(Confirme d) NSTEMI - Non-ST 04/28/09 Active segment elevation AL(Confirmed) TIA(Confirmed) Active TIA (transient Resolved ischemic attack)(Confirmed) Upper GI 04/28/09 Active bleeding(Confirmed) Allergies, Adverse Reactions, Alerts Substance Reaction Severity Status NKDA Active Medications acetaminophen 650 mg, 2 tab, Route: PO, Drug form: TAB, Q4H, Dosing Weight 90.909, kg, PRN Sai n 1-3/Temp > 100.4 F, Start date: 09/30/15 22:55:00 CDT, Duration: 30 day, Stop date: 10/30/15 22:54:00 CDT Notes: Do not exceed 4 gm/day. (Same as: Tylenol) Start Date: 09/30/15 Stop Date: 10/02/15 Status: Discontinued acetaminophen 1,000 mg, 2 tab, Route: PO, Drug form: TAB, ONCE, Dosing Weight 90.909, kg, Star t date: 09/30/15 21:45:00 CDT, Stop date: 09/30/15 21:45:00 CDT Notes: Max acetaminophen 4000 mg/day (4 gm/day). (Same as: Tylenol Extra Streng th) Start Date: 09/30/15 Stop Date: 09/30/15 Status: Completed acetaminophen 325 mg oral tablet 650 mg=2 tab, PO, Q4H, PRN Pain 1-3/Temp > 100.4 F, 0 Refill(s) Start Date: 10/02/15 Status: Ordered aspirin 81 mg, 1 tab, Route: PO, Drug form: ECTAB, Daily, Dosing Weight 99.545, kg, Star t date: 10/01/15 9:00:00 CDT, Duration: 30 day, Stop date: 10/30/15 9:00:00 CDT Notes: Do not crush or chew.(Same As: Ecotrin) Start Date: 10/01/15 Stop Date: 10/02/15 Status: Discontinued aspirin 81 mg tablet, enteric coated 81 mg=1 tab, PO, Daily, 0 Refill(s) Start Date: 10/02/15 Status: Ordered heparin 5000 units/mL injectable solution 5,000 unit, 1 mL, Route: SUB-Q, Drug form: INJ, Q8H, Dosing Weight 90.909, kg, S tart date: 10/01/15 0:00:00 CDT, Duration: 30 day, Stop date: 10/30/15 16:00:00 CDT Notes: porcine heparin Start Date: 10/01/15 Stop Date: 10/02/15 Status: Discontinued hydrochlorothiazide 25 mg, PO, Daily, 0 Refill(s) Start Date: 09/30/15 Stop Date: 10/02/15 Status: Discontinued Isolyte S (PH 7.4) 1000 mL 1,000 mL 1,000 mL, Rate: 1,000 ml/hr, Infuse over: 1 hr, Route: IV, Dosing Weight 90.909 kg, Total Volume: 1,000, Start date: 09/30/15 22:49:00 CDT, Duration: 1 doses or times, Stop date: 09/30/15 23:48:00 CDT Notes: (Same as: Isolyte S PH 7.4) Start Date: 09/30/15 Stop Date: 09/30/15 Status: Completed Isolyte S (PH 7.4) 1000 mL 1,000 mL 1,000 mL, Rate: 1,000 ml/hr, Infuse over: 1 hr, Route: IV, Dosing Weight 90.909 kg, Total Volume: 1,000, Start date: 09/30/15 21:44:00 CDT, Duration: 1 doses or times, Stop date: 09/30/15 22:43:00 CDT Notes: (Same as: Isolyte S PH 7.4) Start Date: 09/30/15 Stop Date: 09/30/15 Status: Completed magnesium sulfate 1 gm, 100 mL, Route: IVPB, Drug form: INJ, ONCE, Dosing Weight 99.545, kg, Start date: 10/01/15 8:13:00 CDT, Duration: 1 doses or times, Stop date: 10/01/15 8:1 3:00 CDT Notes: WASTE: F/P - Sink; E - Municipal Trash Bin Start Date: 10/01/15 Stop Date: 10/01/15 Status: Completed Plavix 75 mg, 1 tab, Route: PO, Drug form: TAB, Daily, Dosing Weight 90.909, kg, Start date: 10/01/15 9:00:00 CDT, Duration: 30 day, Stop date: 10/30/15 9:00:00 CDT Notes: (Same As: Plavix) Start Date: 10/01/15 Stop Date: 10/02/15 Status: Discontinued Plavix 75 mg oral tablet 75 mg=1 tab, PO, Daily, # 30 tab, 0 Refill(s) Start Date: 09/30/15 Status: Ordered potassium chloride 40 mEq, 2 tab, Route: PO, Drug form: ERTAB, ONCE, Dosing Weight 99.545, kg, Star t date: 10/01/15 8:12:00 CDT, Stop date: 10/01/15 8:12:00 CDT Notes: (Same as: K-Dur 20)"Do Not Crush" With food and full glass of water Start Date: 10/01/15 Stop Date: 10/01/15 Status: Completed potassium chloride 40 mEq, 2 tab, Route: PO, Drug form: ERTAB, ONCE, Dosing Weight 99.545, kg, Star t date: 10/01/15 17:56:00 CDT, Stop date: 10/01/15 17:56:00 CDT Notes: (Same as: K-Dur 20)"Do Not Crush" With food and full glass of water Start Date: 10/01/15 Stop Date: 10/01/15 Status: Completed Prevacid 30 mg, Route: PO, Drug form: DRC, Daily, Dosing Weight 90.909, kg, Start date: 0 10/01/15 9:00:00 CDT, Duration: 30 day, Stop date: 10/30/15 9:00:00 CDT Start Date: 10/01/15 Stop Date: 10/01/15 Status: Deleted Prevacid 30 mg oral delayed release capsule 30 mg=1 cap, PO, Daily, # 30 cap, 0 Refill(s) Start Date: 09/30/15 Status: Ordered Protonix 40 mg, 1 tab, Route: PO, Drug form: ECTAB, Before Dinner, Start date: 10/01/15 1 6:30:00 CDT, Duration: 30 day, Stop date: 10/30/15 16:30:00 CDT Notes: Tablet should not be chewed or crushed.(Same as: Protonix) Start Date: 10/01/15 Stop Date: 10/02/15 Status: Discontinued senna 8.6 mg oral tablet 8.6 mg, 1 tab, Route: PO, Drug Form: TAB, Dosing Weight 99.545, kg, BID, PRN Con stipation, Start date: 10/01/15 16:25:00 CDT, Duration: 30 day, Stop date: 10/30 16:24:00 CDT Notes: (Same as: Senokot) Start Date: 10/01/15 Stop Date: 10/01/15 Status: Discontinued simvastatin 80 mg, 2 tab, Route: PO, Drug form: TAB, Bedtime, Dosing Weight 90.909, kg, Star t date: 10/01/15 21:00:00 CDT, Duration: 30 day, Stop date: 10/30/15 21:00:00 CD T Notes: (Same as: Zocor) Start Date: 10/01/15 Stop Date: 10/02/15 Status: Discontinued simvastatin 80 mg oral tablet 80 mg=1 tab, PO, Bedtime, # 90 tab, 1 Refill(s) Start Date: 09/30/15 Stop Date: 12/29/15 Status: Ordered sodium chloride 0.9% 1000 ml INJ 1,000 mL 1,000 mL, Rate: 125 ml/hr, Infuse over: 8 hr, Route: IV, Dosing Weight 90.909 kg , Total Volume: 1,000, Start date: 10/01/15 1:10:00 CDT, Duration: 30 day, Stop date: 10/31/15 1:09:00 CDT Start Date: 10/01/15 Stop Date: 10/02/15 Status: Discontinued tramadol 50 mg oral tablet 50 mg, Route: PO, Drug form: TAB, ONCE, Dosing Weight 90.909, kg, PRN Pain Score 1-3, Start date: 09/30/15 23:57:00 CDT, Stop date: 10/30/15 23:56:00 CDT Start Date: 09/30/15 Stop Date: 09/30/15 Status: Completed Tylenol with Codeine #3 oral tablet 1 tab, Route: PO, Drug Form: TAB, Dosing Weight 99.545, kg, Q6H, PRN Pain Score 6-10, Start date: 10/01/15 15:08:00 CDT, Duration: 30 day, Stop date: 10/31/15 1 5:07:00 CDT Notes: Do not exceed 4gm/day of acetaminophen. (Same as: Tylenol with Codeine # 3) Start Date: 10/01/15 Stop Date: 10/02/15 Status: Discontinued Tylenol with Codeine #3 oral tablet 1 tab, PO, Q6H, PRN Pain Score 6-10, X 5 day, # 20 tab, 0 Refill(s) Start Date: 10/02/15 Stop Date: 10/07/15 Status: Ordered Zoloft 100 mg, 1 tab, Route: PO, Drug form: TAB, Daily, Dosing Weight 90.909, kg, Start date: 10/01/15 9:00:00 CDT, Duration: 30 day, Stop date: 10/30/15 9:00:00 CDT Notes: (Same as: Zoloft) Start Date: 10/01/15 Stop Date: 10/02/15 Status: Discontinued Zoloft 100 mg oral tablet 100 mg=1 tab, PO, Daily, # 30 tab, 0 Refill(s) Start Date: 09/30/15 Status: Ordered Results ELECTROLYTES 1 2 3 Most recent to oldest [Reference Range]: 142 mEq/L (10/02/15 3:24 AM) 142 mEq/L (10/01/15 4:20 PM) 141 mEq/L (10/01/15 5:28 AM) Sodium Lvl [135-145 mEq/L] 3.3 mEq/L *LOW* (10/02/15 3:24 AM) 3.2 mEq/L *LOW* (10/01/15 4:20 PM) 3.3 mEq/L *LOW* (10/01/15 5:28 AM) Potassium Lvl [3.5-5.1 mEq/L] 104 mEq/L (10/02/15 3:24 AM) 105 mEq/L (10/01/15 4:20 PM) 104 mEq/L (10/01/15 5:28 AM) Chloride Lvl [95-109 mEq/L] 31 mEq/L (10/02/15 3:24 AM) 25 mEq/L (10/01/15 4:20 PM) 24 mEq/L (10/01/15 5:28 AM) CO2 [24-32 mEq/L] 10.3 mEq/L (10/02/15 3:24 AM) 15.2 mEq/L (10/01/15 4:20 PM) 16.3 mEq/L (10/01/15 5:28 AM) AGAP [10.0-20.0 mEq/L] CHEM PANEL 1 2 3 Most recent to oldest [Reference Range]: 1.29 mg/dL (10/02/15 3:24 AM) 1.44 mg/dL *HI* (10/01/15 4:20 PM) 1.86 mg/dL *HI* (10/01/15 5:28 AM) Creatinine Lvl [0.50-1.40 mg/dL] 56 mL/min/1.73m2 1 *NA* (10/02/15 3:24 AM) 49 mL/min/1.73m2 2 *NA* (10/01/15 4:20 PM) 36 mL/min/1.73m2 3 *NA* (10/01/15 5:28 AM) eGFR 16 mg/dL (10/02/15 3:24 AM) 17 mg/dL (10/01/15 4:20 PM) 19 mg/dL (10/01/15 5:28 AM) BUN [7-22 mg/dL] 9 (09/30/15 9:46 PM) B/C Ratio [6-25] 102 mg/dL *HI* (10/02/15 3:24 AM) 112 mg/dL *HI* (10/01/15 4:20 PM) 111 mg/dL *HI* (10/01/15 5:28 AM) Glucose Lvl [70-99 mg/dL] 8.1 g/dL (09/30/15 9:46 PM) Total Protein [6.4-8.4 g/dL] 4.3 g/dL (09/30/15 9:46 PM) Albumin Lvl [3.5-5.0 g/dL] 3.8 g/dL (09/30/15 9:46 PM) Globulin [2.0-4.0 g/dL] 1.1 (09/30/15 9:46 PM) A/G Ratio [0.7-1.6] 9.2 mg/dL (10/02/15 3:24 AM) 9.6 mg/dL (10/01/15 4:20 PM) 9.7 mg/dL (10/01/15 5:28 AM) Calcium Lvl [8.5-10.5 mg/dL] 1.8 mg/dL *LOW* (09/30/15 9:46 PM) Phosphorus [2.5-4.5 mg/dL] 1.7 mg/dL *LOW* (09/30/15 9:46 PM) Magnesium Lvl [1.8-2.4 mg/dL] 19 unit/L (09/30/15 9:46 PM) ALT [0-65 unit/L] 17 unit/L (09/30/15 9:46 PM) AST [0-37 unit/L] 91 unit/L (09/30/15 9:46 PM) Alk Phos [39-136 unit/L] 0.8 mg/dL (09/30/15 9:46 PM) Bili Total [0.2-1.3 mg/dL] 1Result Comment: The eGFR is calculated using the [...] from the National Kidney Disease Education Program ( NKDEP) which additionally recommends that when the eGFR is used in patients with extremes of body mass index for purposes of drug dosing, the eGFR should be mul tiplied by the estimated BMI. 2Result Comment: The eGFR is calculated using the [...] from the National Kidney Disease Education Program ( NKDEP) which additionally recommends that when the eGFR is used in patients with extremes of body mass index for purposes of drug dosing, the eGFR should be mul tiplied by the estimated BMI. 3Result Comment: The eGFR is calculated using the [...] from the National Kidney Disease Education Program ( NKDEP) which additionally recommends that when the eGFR is used in patients with extremes of body mass index for purposes of drug dosing, the eGFR should be mul tiplied by the estimated BMI. CARDIAC ENZYMES 1 2 3 Most recent to oldest [Reference Range]: 85 unit/L (09/30/15 9:46 PM) Total CK [12-191 unit/L] 0.8 ng/mL (09/30/15 9:46 PM) CK MB [0.5-3.6 ng/mL] 0.9 (09/30/15 9:46 PM) CK MB Index [0.0-2.5] 0.02 ng/mL (10/01/15 9:44 PM) 0.04 ng/mL (10/01/15 2:11 PM) 0.07 ng/mL (10/01/15 5:28 AM) Troponin-I [0.00-0.40 ng/mL] MYOGLOBIN 1 2 3 Most recent to oldest [Reference Range]: 228 ng/mL *HI* (09/30/15 9:46 PM) Myoglobin [25-72 ng/mL] DRUG SCREEN 1 2 3 Most recent to oldest [Reference Range]: Negative *NA* (10/01/15 10:43 AM) U Amph Scr [Negative] Negative *NA* (10/01/15 10:43 AM) U Livier Scr [Negative] Negative *NA* (10/01/15 10:43 AM) U Benzodia Scr [Negative] Negative *NA* (10/01/15 10:43 AM) U Cocaine Scr [Negative] Negative *NA* (10/01/15 10:43 AM) U Opiate Scr [Negative] Negative *NA* (10/01/15 10:43 AM) U Phencyc Scr [Negative] Negative *NA* (10/01/15 10:43 AM) U Cannab Scr [Negative] See Note *NA* (10/01/15 10:43 AM) UDS Note URINE CHEM 1 2 3 Most recent to oldest [Reference Range]: 175.00 mg/dL *NA* (10/01/15 10:43 AM) U Creatinine 70 mEq/L *NA* (10/01/15 10:43 AM) U Sodium 52.8 mEq/L *NA* (10/01/15 10:43 AM) U Potassium 75 mEq/L *NA* (10/01/15 10:43 AM) U Chloride URINE AND STOOL 1 2 3 Most recent to oldest [Reference Range]: Clear (10/01/15 10:43 AM) UA Turbidity [Clear] Yellow *NA* (10/01/15 10:43 AM) UA Color [Yellow] 5.5 (10/01/15 10:43 AM) UA pH [5.0-8.0] 1.016 (10/01/15 10:43 AM) UA Spec Grav [<=1.030] Negative mg/dL *NA* (10/01/15 10:43 AM) UA Glucose [Negative mg/dL] Negative (10/01/15 10:43 AM) UA Blood [Negative] Negative mg/dL *NA* (10/01/15 10:43 AM) UA Ketones [Negative mg/dL] 10 mg/dL *ABN* (10/01/15 10:43 AM) UA Protein [Negative mg/dL] <=1.0 mg/dL *NA* (10/01/15 10:43 AM) UA Urobilinogen [0.1-1.0 mg/dL] Negative *NA* (10/01/15 10:43 AM) UA Bili [Negative] Small *ABN* (10/01/15 10:43 AM) UA Leuk Est [Negative] Negative (10/01/15 10:43 AM) UA Nitrite [Negative] 5 /HPF (10/01/15 10:43 AM) UA WBC [0-5 /HPF] 2 /HPF (10/01/15 10:43 AM) UA RBC [0-2 /HPF] Occasional /HPF *NA* (10/01/15 10:43 AM) UA Bacteria [None Seen /HPF] 11 /LPF *HI* (10/01/15 10:43 AM) UA Hyal Cast [0-2 /LPF] Occasional /HPF *NA* (10/01/15 10:43 AM) UA Amorph Nadia [None Seen /HPF] Few /LPF *NA* (10/01/15 10:43 AM) UA Mucus [None Seen /LPF] 1 /LPF *NA* (10/01/15 10:43 AM) UA Gran Cast Performed *NA* (10/01/15 10:43 AM) Micro? HEMATOLOGY 1 2 3 Most recent to oldest [Reference Range]: 6.1 K/CMM (10/02/15 3:24 AM) 11.4 K/CMM *HI* (10/01/15 5:28 AM) 16.3 K/CMM *HI* (09/30/15 9:46 PM) WBC [3.7-10.4 K/CMM] 3.70 M/CMM *LOW* (10/02/15 3:24 AM) 3.94 M/CMM *LOW* (10/01/15 5:28 AM) 4.49 M/CMM *LOW* (09/30/15 9:46 PM) RBC [4.70-6.10 M/CMM] 11.6 g/dL *LOW* (10/02/15 3:24 AM) 12.1 g/dL *LOW* (10/01/15 5:28 AM) 13.8 g/dL *LOW* (09/30/15 9:46 PM) Hgb [14.0-18.0 g/dL] 34.4 % *LOW* (10/02/15 3:24 AM) 36.6 % *LOW* (10/01/15 5:28 AM) 41.5 % *LOW* (09/30/15 9:46 PM) Hct [42.0-54.0 %] 93.2 fL (10/02/15 3:24 AM) 92.9 fL (10/01/15 5:28 AM) 92.4 fL (09/30/15 9:46 PM) MCV [80.0-94.0 fL] 31.5 pg *HI* (10/02/15 3:24 AM) 30.8 pg (10/01/15 5:28 AM) 30.6 pg (09/30/15 9:46 PM) MCH [27.0-31.0 pg] 33.8 g/dL (10/02/15 3:24 AM) 33.1 g/dL (10/01/15 5:28 AM) 33.1 g/dL (09/30/15 9:46 PM) MCHC [32.0-36.0 g/dL] 13.9 % (10/02/15 3:24 AM) 13.7 % (10/01/15 5:28 AM) 13.8 % (09/30/15 9:46 PM) RDW [11.5-14.5 %] 94 K/CMM *LOW* (10/02/15 3:24 AM) 122 K/CMM *LOW* (10/01/15 5:28 AM) 137 K/CMM (09/30/15 9:46 PM) Platelet [133-450 K/CMM] 9.9 fL (10/02/15 3:24 AM) 9.4 fL (10/01/15 5:28 AM) 10.0 fL (09/30/15 9:46 PM) MPV [7.4-10.4 fL] 57.7 % (10/02/15 3:24 AM) 73.3 % (10/01/15 5:28 AM) 87.4 % *HI* (09/30/15 9:46 PM) Segs [45.0-75.0 %] 31.1 % (10/02/15 3:24 AM) 19.2 % *LOW* (10/01/15 5:28 AM) 5.8 % *LOW* (09/30/15 9:46 PM) Lymphocytes [20.0-40.0 %] 7.6 % (10/02/15 3:24 AM) 6.6 % (10/01/15 5:28 AM) 6.3 % (09/30/15 9:46 PM) Monocytes [2.0-12.0 %] 2.8 % (10/02/15 3:24 AM) 0.6 % (10/01/15 5:28 AM) 0.2 % (09/30/15 9:46 PM) Eosinophils [0.0-4.0 %] 0.8 % (10/02/15 3:24 AM) 0.3 % (10/01/15 5:28 AM) 0.3 % (09/30/15 9:46 PM) Basophils [0.0-1.0 %] 3.5 K/CMM (10/02/15 3:24 AM) 8.4 K/CMM *HI* (10/01/15 5:28 AM) 14.2 K/CMM *HI* (09/30/15 9:46 PM) Segs-Bands # [1.5-8.1 K/CMM] 1.9 K/CMM (10/02/15 3:24 AM) 2.2 K/CMM (10/01/15 5:28 AM) 0.9 K/CMM *LOW* (09/30/15 9:46 PM) Lymphocytes # [1.0-5.5 K/CMM] 0.5 K/CMM (10/02/15 3:24 AM) 0.8 K/CMM (10/01/15 5:28 AM) 1.0 K/CMM *HI* (09/30/15 9:46 PM) Monocytes # [0.0-0.8 K/CMM] 0.2 K/CMM (10/02/15 3:24 AM) 0.1 K/CMM (10/01/15 5:28 AM) Eosinophils # [0.0-0.5 K/CMM] Normal (10/01/15 5:28 AM) RBC Morph Normal (10/01/15 5:28 AM) Plt Morph Immunizations No data available for this section Procedures No data available for this section Social History Social History Type Response Substance Abuse Use: None. Employment/School Status: Retired.1 Alcohol Current, Type Wine. Frequency: 1-2 times per year. Smoking Status Never smoker; Type: eCigarettes; Exposure to Tobacco Smoke None; Cigarette Smoking Last 365 Days No; Reg Smoking Cessation Counseling No 1Volunteering Assessment and Plan Extracted from: Title: Clinical Document Author: Hawa Ornelas Date: 10/02/15 Discharge Summary Patient Name: Isabela Rock Date of Admission:09/30/2015 Date of Discharge: 10/02/2015 Admission Diagnosis: Lightheadedness, Vomiting, Possible Syncope Discharge Diagnosis: Lightheadedness Procedures: Echocardiogram, CT head Consultants: None H&P: 69yo with history of HTN, HLD, AL, CVA/TIA, depression presented to the ED after episode of lightheadedness and vomiting while working at [employer]. The family told the ED staff that the patient vomited and passed out while working. EMS brought the patient to the ED and reported the patient had an episode of Aflutter in the truck and his BP dropped to 70/40. The family also admits the patient has had decreased PO intake over the past few days and they report difficulty ambulating as well as a new tremor. Denies: fever, chills, chest pain, diarrhea, abdominal pain, back pain, headache, weakness, numbness, tingling. Exam: VitalsTmp(F)[id number] 10/01 [id number]--- 10/01 [id number]--- 09/30 [id number]--- 09/30 [id number]--- 09/30 [id number]--- 24 Hr Tmax: 97.8F (36.56c) at 09/30 15:44Vital Signs are the last 5 in the past 48 hours. Gen: AOx3, NAD Head and Neck: Atraumatic, Normocephalic, No LAD Eyes: PERRL, EOMI ENT: OP clear, normal nasal mucosa Cardiac: regular rate and rhythm Chest: clear to auscultation bilaterally Abd: soft, non-distended, normal bowel sounds, non-tender Musk/Skin: no cyanosis, erythema, edema Neuro: CNII-XII intact, motor strength 5/5, sensation intact I have personally seen and examined the patient on the date of discharge. Hospital Course: 69yo with history of HTN, HLD, AL, CVA/TIA, depression presented to the ED after episode of lightheadedness and vomiting while working at [employer]. 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 During his stay in the COU he had 3 sets of normal cardiac enzymes and unrevealing echo. His CT brain and chest xray were negative for acute abnormalities. He was found to have acute kidney injury likely due to dehydration or to his hydrochlorothiazide. His renal insufficiency resolved with IV fluids. He had no acute events overnight. The patient feels much improved from yesterday and feels ready to go home. He worked with PT who has cleared the patient. Will d/c to follow up with his buttonhole maker and primary care physician next week. He will also be started on ASA, given a holter monitor and his hydrochlorothiazide will be held until he follows up. Discharge Medications:please see MAR Discharge Instructions: Follow up with your buttonhole maker and primary physcian in the next few days Discharge Diet: Heart Healthy Diet Discharge To: Home Extracted from: Title: Hospitalist Progress Note Author: Mikhail Johnston MD Date: 10/01/15 Assessment/Plan 1.Light headed will need event monitor for "flutter" will start ASA, risk of OAC for single unconfirmed episode is too high complete w/u TSH ECHO PT/OT UTOX Ordered: Event Monitor 2.Acute kidney injury IVF overngiht check BMP in AM has some "kidney problem" at baseline 3.H/O acute myocardial infarction ASA/Plavix enzymes negative 7.Hypertension controlled, monitor 8.Leukocytosis 2/2 possible UTI f/u pending culture could be stress response, downtrending Acute hypokalemia supp and recheck Hypomagnesemia supp and recheck Orders: Tylenol with Codeine #3 oral tablet, 1 tab, Route: PO, Drug Form: TAB, Dosing Weight 99.545, kg, Q6H, PRN Pain Score 6-10, Start date: 10/01/15 15:08:00 CDT, Duration: 30 day, Stop date: 10/31/15 15:07:00 CDT aspirin, 81 mg, 1 tab, Route: PO, Drug form: ECTAB, Daily, Dosing Weight 99.545, kg, Start date: 10/01/15 9:00:00 CDT, Duration: 30 day, Stop date: 10/30/15 9:00:00 CDT Admit / Condition Misc MD to Nurse Order Prophylaxis SQH Disposition home tomorrow likely FULL CODE [facility] IM hospitalist team is primary. Please page [phone] with any questions.
--- OUTSIDE RECORDS SUMMARY | 2018-06-12 12:34 | XMS REPORT | Summary of Care ---
Author Author [facility] Organization [facility] Address Unknown Phone Unavailable Encounter HQ Adal(KAYLENE) [id number] Date(s): 05/22/17 - 05/25/17 [facility] [address] [place] [address]- Encounter Diagnosis Toxic encephalopathy (Final) - 06/04/17 Cellulitis of left lower limb (Final) - Dehydration (Final) - Atherosclerotic heart disease of [place] coronary artery without angina pectoris (Final) - Hyperlipidemia, unspecified (Final) - Essential (primary) hypertension (Final) - Major depressive disorder, single episode, unspecified (Final) - Adverse effect of other opioids, initial encounter (Final) - Adverse effect of antiparkinsonism drugs and other central muscle-tone depressan ts, initial encounter (Final) - Discharge Disposition: Home Care with Home Health Attending Physician: Anjum Brandon MD Admitting Physician: Anjum Brandon MD Vital Signs 1 2 3 Most recent to oldest [Reference Range]: 185.42 cm (05/23/17 1:09 AM) 187.96 cm (05/22/17 3:39 PM) Height 98.3 DegF (05/25/17 11:00 AM) 98.4 DegF (05/25/17 8:53 AM) 98.7 DegF (05/24/17 11:15 PM) Temperature Oral [96.4-99.1 DegF] 130/57 mmHg (05/25/17 11:00 AM) 129/51 mmHg (05/25/17 8:53 AM) 137/70 mmHg (05/24/17 11:15 PM) Blood Pressure [90-140/60-90 mmHg] 16 BRMIN (05/25/17 11:00 AM) 18 BRMIN (05/25/17 8:53 AM) 18 BRMIN (05/24/17 11:15 PM) Respiratory Rate [14-20 BRMIN] 48 bpm *LOW* (05/25/17 11:00 AM) 55 bpm *LOW* (05/25/17 8:53 AM) 57 bpm *LOW* (05/24/17 11:15 PM) Peripheral Pulse Rate [60-100 bpm] 103.9 kg (05/23/17 1:09 AM) 104.545 kg (05/22/17 3:39 PM) Weight 30.22 m2 (05/23/17 1:09 AM) 29.59 m2 (05/22/17 3:39 PM) Body Mass Index Problem List Condition Effective Dates Status Health Status Informant GI bleed(Confirmed) Active HTN Resolved (hypertension)(Confi rmed) Hyperlipidemia(Confi Active rmed) Hypertension(Confirm Active ed) CA (myocardial Active infarction)(Confirme d) NSTEMI - Non-ST 04/28/09 Active segment elevation CA(Confirmed) TIA(Confirmed) Active TIA (transient Resolved ischemic attack)(Confirmed) Upper GI 04/28/09 Active bleeding(Confirmed) Allergies, Adverse Reactions, Alerts Substance Reaction Severity Status NKDA Active Medications acetaminophen 650 mg, 2 tab, Route: PO, Drug form: TAB, Q6H, Dosing Weight 104.545, kg, PRN Pa in Score 1-3, Start date: 05/22/17 19:56:00 [facility], Duration: 30 day, Stop date: 19:55:00 [facility] Notes: Do not exceed 4 gm/day. (Same as: Tylenol) Start Date: 05/22/17 Stop Date: 05/25/17 Status: Discontinued acetaminophen 650 mg, 2 tab, Route: PO, Drug form: TAB, Q4H, Dosing Weight 104.545, kg, PRN Pa in 1-3/Temp > 100.4 F, Start date: 05/22/17 19:54:00 [facility], Duration: 30 day, Stop date: 06/21/17 19:53:00 [facility] Notes: Do not exceed 4 gm/day. (Same as: Tylenol) Start Date: 05/22/17 Stop Date: 05/23/17 Status: Discontinued acetaminophen-hydrocodone 325 mg-5 mg oral tablet 1 tab, Route: PO, Drug Form: TAB, Dosing Weight 104.545, kg, Q6H, PRN Pain Score 4-6, Start date: 05/22/17 19:56:00 [facility], Duration: 30 day, Stop date: 06/21/17 9:55:00 [facility] Notes: (Same as: [place] 325/5) Do not exceed 4gm/day of acetaminophen. Start Date: 05/22/17 Stop Date: 05/25/17 Status: Discontinued acetaminophen-hydrocodone 325 mg-5 mg oral tablet 1 tab, Route: PO, Dosing Weight 104.545, kg, Q4H, PRN Pain Score 4-6, Start date : 05/22/17 19:54:00 [facility], Duration: 30 day, Stop date: 06/21/17 19:53:00 [facility] Start Date: 05/22/17 Stop Date: 05/22/17 Status: Discontinued aspirin 81 mg tablet, enteric coated 81 mg, 1 tab, Route: PO, Drug form: ECTAB, Daily, Dosing Weight 103.9, kg, Start date: 05/23/17 10:00:00 [facility], Duration: 30 day, Stop date: 06/22/17 9:00:00 [facility] Notes: (Same As: Ecotrin) Start Date: 05/23/17 Stop Date: 05/25/17 Status: Discontinued carisoprodol 350 mg oral tablet 350 mg=1 tab, PO, BID, PRN Muscle Spasms, 0 Refill(s) Start Date: 05/23/17 Stop Date: 05/25/17 Status: Discontinued cephalexin 500 mg oral capsule 500 mg=1 cap, PO, TID, 0 Refill(s) Start Date: 05/23/17 Stop Date: 05/25/17 Status: Discontinued clindamycin 300 mg oral capsule 300 mg=1 cap, PO, Q6H, X 10 day, # 40 cap, 0 Refill(s), Pharmacy: [facility]/pharmacy # [id number] Start Date: 05/25/17 Stop Date: 06/04/17 Status: Completed Lovenox 40 mg, 0.4 mL, Route: SUB-Q, Drug form: INJ, [id number], Dosing Weight 103.9, kg, Start date: 05/24/17 11:00:00 [facility], Duration: 30 day, Stop date: 06/22/17 11:00:0 0 [facility] Notes: (Same as: Lovenox) Start Date: 05/24/17 Stop Date: 05/25/17 Status: Discontinued MiraLax 17 gm, 1 pkt, Route: PO, Drug form: PWDR, BID, Dosing Weight 104.545, kg, PRN Co nstipation, Start date: 05/22/17 19:56:00 [facility], Duration: 30 day, Stop date: 07/06 19:55:00 [facility] Notes: Dissolve in 8 oz of water or juice.(Same as: Miralax) Start Date: 05/22/17 Stop Date: 05/25/17 Status: Discontinued [place] 10/325 oral tablet 1 tab, PO, Q6H, PRN Pain 4-6/Temp > 100.4 F, 0 Refill(s) Start Date: 05/23/17 Status: Ordered NS (Bolus) IV 1,000 mL, 1,000 ml/hr, Infuse Over: 1 hr, Route: IV, ONCE, Priority: STAT, Dosin g Weight 104.545 kg, Start date: 05/22/17 17:45:00 [facility], Stop date: 05/22/17 17:4 5:00 [facility] Start Date: 05/22/17 Stop Date: 05/22/17 Status: Completed NS (Bolus) IV 1,000 mL, 1,000 ml/hr, Infuse Over: 1 hr, Route: IV, ONCE, Priority: STAT, Dosin g Weight 104.545 kg, Start date: 05/22/17 17:45:00 [facility], Stop date: 05/22/17 17:4 5:00 [facility] Start Date: 05/22/17 Stop Date: 05/22/17 Status: Completed NS 1,000 mL 1,000 mL, Rate: 100 ml/hr, Infuse over: 10 hr, Route: IV, Dosing Weight 104.545 kg, Total Volume: 1,000, Start date: 05/22/17 19:55:00 [facility], Duration: 10 hr, Sto p date: 05/23/17 5:54:00 [facility], 2.35, m2 Start Date: 05/22/17 Stop Date: 05/23/17 Status: Completed ondansetron 4 mg, 2 mL, Route: IV, Drug form: INJ, Q4H, Dosing Weight 104.545, kg, PRN Nause a, Start date: 05/22/17 19:56:00 [facility], Duration: 30 day, Stop date: 06/21/17 19:5 5:00 [facility] Notes: (Same as: Zofran) MEDICATION WASTE Product Size: 4 mgProduct Was kendal: ___ mg Start Date: 05/22/17 Stop Date: 05/25/17 Status: Discontinued ondansetron 4 mg, 2 mL, Route: IVP, Drug form: INJ, Q6H, Dosing Weight 104.545, kg, PRN Naus ea & Vomiting, Start date: 05/22/17 19:54:00 [facility], Duration: 30 day, Stop date: 06/21/17 19:53:00 [facility] Notes: (Same as: Zofran) MEDICATION WASTE Product Size: 4 mgProduct Was kendal: ___ mg Start Date: 05/22/17 Stop Date: 05/23/17 Status: Discontinued Plavix 75 mg, 1 tab, Route: PO, Drug form: TAB, Daily, Dosing Weight 103.9, kg, Start d ate: 05/23/17 10:00:00 [facility], Duration: 30 day, Stop date: 06/22/17 9:00:00 [facility] Notes: (Same As: Plavix) Start Date: 05/23/17 Stop Date: 05/25/17 Status: Discontinued Prevacid 30 mg, Route: PO, Drug form: DRC, Daily, Dosing Weight 103.9, kg, Start date: 9:00:00 [facility], Duration: 30 day, Stop date: 06/22/17 9:00:00 [facility] Start Date: 05/24/17 Stop Date: 05/23/17 Status: Deleted Protonix 40 mg, 1 tab, Route: PO, Drug form: ECTAB, Before Dinner, Start date: 05/23/17 1 6:30:00 [facility], Duration: 30 day, Stop date: 06/21/17 16:30:00 [facility] Notes: (Same as: Protonix) Start Date: 05/23/17 Stop Date: 05/25/17 Status: Discontinued simvastatin 80 mg, 4 tab, Route: PO, Drug form: TAB, Bedtime, Dosing Weight 103.9, kg, Start date: 05/23/17 21:00:00 [facility], Duration: 30 day, Stop date: 06/21/17 21:00:00 [facility] Notes: (Same as: Zocor) Start Date: 05/23/17 Stop Date: 05/25/17 Status: Discontinued Vanc level scheduled Vanc level scheduled, Vanc level due, Drug form: MISC, Route: MISC, ONCE, 10:00:00 [facility], Stop date: 05/25/17 10:00:00 [facility] Start Date: 05/25/17 Stop Date: 05/25/17 Status: Deleted vancomycin 1.25 gm, 250 mL, Route: IVPB, Drug form: INJ, [id number], Start date: 05/23/17 23:0 0:00 [facility], Duration: 13 doses or times, Stop date: 05/29/17 23:00:00 [facility], ABX Ind ication: Skin/Soft Tissue Infection Notes: Same as: Vancocin-NS (premixed) Start Date: 05/23/17 Stop Date: 05/25/17 Status: Discontinued vancomycin 1.75 gm, 500 mL, Route: IVPB, Drug form: SOLN, ONCE, Start date: 05/23/17 11:00: 00 [facility], Stop date: 05/23/17 11:00:00 [facility], ABX Indication: Skin/Soft Tissue Infec tion Notes: Same as: Vancocin Start Date: 05/23/17 Stop Date: 05/23/17 Status: Completed Vancomycin Pharmacy Dosing 1 ea, Route: MISC, ONCALL, Dosing Weight 103.9, kg, Start date: 05/23/17 10:00:0 0 [facility], Duration: 7 day, Stop date: 05/30/17 9:59:00 [facility], Pharmacy to dose, ABX I ndication: Skin/Soft Tissue Infection Start Date: 05/23/17 Stop Date: 05/23/17 Status: Deleted Zoloft 100 mg, 2 tab, Route: PO, Drug form: TAB, Daily, Dosing Weight 103.9, kg, Start date: 05/23/17 10:00:00 [facility], Duration: 30 day, Stop date: 06/22/17 9:00:00 [facility] Notes: (Same as: Zoloft) Start Date: 05/23/17 Stop Date: 05/25/17 Status: Discontinued Results ELECTROLYTES 1 2 3 Most recent to oldest [Reference Range]: 142 mEq/L (05/23/17 7:31 AM) 140 mEq/L (05/22/17 4:24 PM) Sodium Lvl [135-145 mEq/L] 4.2 mEq/L (05/23/17 7:31 AM) 4.4 mEq/L (05/22/17 4:24 PM) Potassium Lvl [3.5-5.1 mEq/L] 110 mEq/L *HI* (05/23/17 7:31 AM) 107 mEq/L (05/22/17 4:24 PM) Chloride Lvl [95-109 mEq/L] 26 mEq/L (05/23/17 7:31 AM) 27 mEq/L (05/22/17 4:24 PM) CO2 [24-32 mEq/L] 10.2 mEq/L (05/23/17 7:31 AM) 10.4 mEq/L (05/22/17 4:24 PM) AGAP [10.0-20.0 mEq/L] CHEM PANEL 1 2 3 Most recent to oldest [Reference Range]: 1.02 mg/dL (05/25/17 4:59 AM) 1.15 mg/dL (05/23/17 7:31 AM) 1.80 mg/dL *HI* (05/22/17 4:24 PM) Creatinine Lvl [0.50-1.40 mg/dL] 73 mL/min/1.73m2 1 *NA* (05/25/17 4:59 AM) 63 mL/min/1.73m2 2 *NA* (05/23/17 7:31 AM) 37 mL/min/1.73m2 3 *NA* (05/22/17 4:24 PM) eGFR 17 mg/dL (05/25/17 4:59 AM) 17 mg/dL (05/23/17 7:31 AM) 20 mg/dL (05/22/17 4:24 PM) BUN [7-22 mg/dL] 11 (05/22/17 4:24 PM) B/C Ratio [6-25] 101 mg/dL *HI* (05/23/17 7:31 AM) 94 mg/dL (05/22/17 4:24 PM) Glucose Lvl [70-99 mg/dL] 7.9 g/dL (05/22/17 4:24 PM) Total Protein [6.4-8.4 g/dL] 3.5 g/dL (05/22/17 4:24 PM) Albumin Lvl [3.5-5.0 g/dL] 4.4 g/dL *HI* (05/22/17 4:24 PM) Globulin [2.7-4.2 g/dL] 0.8 (05/22/17 4:24 PM) A/G Ratio [0.7-1.6] 9.5 mg/dL (05/23/17 7:31 AM) 10.2 mg/dL (05/22/17 4:24 PM) Calcium Lvl [8.5-10.5 mg/dL] 14 unit/L (05/22/17 4:24 PM) ALT [0-65 unit/L] 22 unit/L (05/22/17 4:24 PM) AST [0-37 unit/L] 101 unit/L (05/22/17 4:24 PM) Alk Phos [39-136 unit/L] 0.3 mg/dL (05/22/17 4:24 PM) Bili Total [0.2-1.3 mg/dL] 93 unit/L (05/22/17 4:24 PM) Lipase Lvl [73-393 unit/L] 0.7 mMol/L (05/22/17 7:55 PM) 2.2 mMol/L (05/22/17 4:24 PM) Lactic Acid Lvl [0.5-2.2 mMol/L] 1Result Comment: The eGFR is calculated using [...] 3 Most recent to oldest [Reference Range]: 63 unit/L (05/22/17 4:24 PM) Total CK [12-191 unit/L] <0.02 ng/mL (05/22/17 4:24 PM) Troponin-I [0.00-0.40 ng/mL] 64 pg/mL (05/22/17 4:24 PM) BNP [<=100 pg/mL] TOXICOLOGY 1 2 3 Most recent to oldest [Reference Range]: 17.6 ug/ml *NA* (05/25/17 10:13 AM) Vanco Lvl URINE AND STOOL 1 2 3 Most recent to oldest [Reference Range]: Marked *ABN* (05/22/17 5:37 PM) UA Turbidity [Clear] Tracey *ABN* (05/22/17 5:37 PM) UA Color [Yellow] 5.0 (05/22/17 5:37 PM) UA pH [5.0-8.0] 1.016 (05/22/17 5:37 PM) UA Spec Grav [<=1.030] Negative mg/dL *NA* (05/22/17 5:37 PM) UA Glucose [Negative mg/dL] Negative (05/22/17 5:37 PM) UA Blood [Negative] Negative mg/dL *NA* (05/22/17 5:37 PM) UA Ketones [Negative mg/dL] Negative mg/dL (05/22/17 5:37 PM) UA Protein [Negative mg/dL] <=1.0 mg/dL *NA* (05/22/17 5:37 PM) UA Urobilinogen [0.1-1.0 mg/dL] Negative *NA* (05/22/17 5:37 PM) UA Bili [Negative] Trace *ABN* (05/22/17 5:37 PM) UA Leuk Est [Negative] Negative (05/22/17 5:37 PM) UA Nitrite [Negative] 5 /HPF (05/22/17 5:37 PM) UA WBC [0-5 /HPF] 3 /HPF *HI* (05/22/17 5:37 PM) UA RBC [0-2 /HPF] Few /HPF *NA* (05/22/17 5:37 PM) UA Bacteria [None Seen /HPF] Occasional /LPF *NA* (05/22/17 5:37 PM) UA Sq Epi [Few /LPF] 4 /LPF *HI* (05/22/17 5:37 PM) UA Hyal Cast [0-2 /LPF] Few /LPF *NA* (05/22/17 5:37 PM) UA Mucus [None Seen /LPF] HEMATOLOGY 1 2 3 Most recent to oldest [Reference Range]: 7.8 K/CMM (05/23/17 7:31 AM) 9.3 K/CMM (05/22/17 4:24 PM) WBC [3.7-10.4 K/CMM] 3.96 M/CMM *LOW* (05/23/17 7:31 AM) 4.16 M/CMM *LOW* (05/22/17 4:24 PM) RBC [4.70-6.10 M/CMM] 12.3 g/dL *LOW* (05/23/17 7:31 AM) 12.7 g/dL *LOW* (05/22/17 4:24 PM) Hgb [14.0-18.0 g/dL] 37.4 % *LOW* (05/23/17 7:31 AM) 39.4 % *LOW* (05/22/17 4:24 PM) Hct [42.0-54.0 %] 94.4 fL *HI* (05/23/17 7:31 AM) 94.6 fL *HI* (05/22/17 4:24 PM) MCV [80.0-94.0 fL] 31.1 pg *HI* (05/23/17 7:31 AM) 30.6 pg (05/22/17 4:24 PM) MCH [27.0-31.0 pg] 32.9 g/dL (05/23/17 7:31 AM) 32.3 g/dL (05/22/17 4:24 PM) MCHC [32.0-36.0 g/dL] 13.7 % (05/23/17 7:31 AM) 13.7 % (05/22/17 4:24 PM) RDW [11.5-14.5 %] 9.6 fL (05/23/17 7:31 AM) 9.4 fL (05/22/17 4:24 PM) MPV [7.4-10.4 fL] 132 K/CMM *LOW* (05/23/17 7:31 AM) 172 K/CMM (05/22/17 4:24 PM) Platelet [133-450 K/CMM] 72.3 % (05/23/17 7:31 AM) 70.8 % (05/22/17 4:24 PM) Segs [45.0-75.0 %] 16.8 % *LOW* (05/23/17 7:31 AM) 18.0 % *LOW* (05/22/17 4:24 PM) Lymphocytes [20.0-40.0 %] 8.1 % (05/23/17 7:31 AM) 8.7 % (05/22/17 4:24 PM) Monocytes [2.0-12.0 %] 2.3 % (05/23/17 7:31 AM) 1.8 % (05/22/17 4:24 PM) Eosinophils [0.0-4.0 %] 0.5 % (05/23/17 7:31 AM) 0.7 % (05/22/17 4:24 PM) Basophils [0.0-1.0 %] 5.6 K/CMM (05/23/17 7:31 AM) 6.6 K/CMM (05/22/17 4:24 PM) Segs-Bands # [1.5-8.1 K/CMM] 1.3 K/CMM (05/23/17 7:31 AM) 1.7 K/CMM (05/22/17 4:24 PM) Lymphocytes # [1.0-5.5 K/CMM] 0.6 K/CMM (05/23/17 7:31 AM) 0.8 K/CMM (05/22/17 4:24 PM) Monocytes # [0.0-0.8 K/CMM] 0.2 K/CMM (05/23/17 7:31 AM) 0.2 K/CMM (05/22/17 4:24 PM) Eosinophils # [0.0-0.5 K/CMM] 0.1 K/CMM (05/22/17 4:24 PM) Basophils # [0.0-0.2 K/CMM] 13.8 seconds (05/22/17 4:24 PM) PT [12.0-14.7 seconds] 1.06 (05/22/17 4:24 PM) INR [0.85-1.17] 30.3 seconds (05/22/17 4:24 PM) PTT [22.9-35.8 seconds] Immunizations No data available for this section Procedures No data available for this section Social History Social History Type Response Substance Abuse Use: None. Employment/School Status: Retired.1 Alcohol Current, Type Wine. Frequency: 1-2 times per year. Smoking Status Never smoker; Type: eCigarettes; Exposure to Tobacco Smoke None; Cigarette Smoking Last 365 Days No; Reg Smoking Cessation Counseling No entered on: 05/22/17 1Volunteering Assessment and Plan Extracted from: Title: RETURN TO WORK NOTE Author: Ryne Conley MD Date: 05/25/17 Patient Education This patient is admitted to the hospital from 05/22/2017 to 05/25/2017 . Patient's Mrs. Toma Rock was with him in the hospital during this period . Please call for any questions John Conley M.D [address] [place] [address] Extracted from: Title: Cardiology Consult Note Author: Elier Duggan MD Date: 05/23/17 Cardiology Consult Note Requesting Physcain: Dr. Brandon Reason for Consult: Bradycardia Chief Complaint: AMS History of Present Illness: 71 year-old man with HTN, CAD, TIA, HLD and depression presenting with altered mental status. Patient's states that she found him pale, unable to move and unable to answer questions. Patient was also feeling markedly weak. Patient was found to be markely hypotensive on EMS evaluation. Of note, patient Soma and pain medications prior to AMS episode. Patient was breifly on pressors on ER evaluation that improved after IV fluids. Presently mental status is improved. Patient was noted to remain bradycardic. Cardiology Progress Note Past Medical History: TIA (transient ischemic attack) HTN (hypertension) Social History: Employment/School Details: Status: Retired.; Comment(s): Volunteering Alcohol Details: Current, Type Wine. Frequency: 1-2 times per year. Tobacco Details: Use: Never smoker. Type: eCigarettes. Tobacco smoke exposure: None. Did the Patient Smoke Cigarettes Anytime During the Last 365 Days? No. Cessation Counseling Provided? No. Substance Abuse Details: Use: None. Surgical History: No qualifying data available Family History: No qualifying data available Allergies: NKDA Subjective / overnight events: overnight events noted; discussed with party director of Systems: per HPI Exam: General: not in any distress HEENT: no pallor, icterus Cardiovascular: regular, no murmur Respiratory: CTA Abdomen: soft, non-tender, +BS Extremities: no edema, no cyanosis Neurologic: Awake, Nonfocal Skin: no breakdown Assessment and Plan: AMS - per primary Bradycardia - Sinus rhythm on telemetry - EKG without evidence of high grade block - Sinus Bradycardia to 50s noted - Patient is asymptomatic - Outpatient follow-up advised HTN - controlled CAD - Aspirin and plavix h/o TIA - on DAPT HLD - simvastatin Depression - per primary RECS No indication for pacemaker at this time Would follow-up as outpatient Will see JOHN Duggan MD Intervnetional Transplant Worker [facility] d/w RN and patient MICROBIOLOGY: reviewed RADIOLOGY: reviewed CXR: reviewed Diagnosis: Bradycardia, unspecified Comment: Diagnosis: Bradycardia Comment: Vital Signs (last 24 hrs) Last Charted Temp Oral98.1 DegF (MAY 23 11:45) Heart Rate PeripheralL 55bpm (MAY 23 11:45) Resp Rate 16 BRMIN (MAY 23 11:45) IPJ560 mmHg (MAY 23 11:45) DBP65 mmHg (MAY 23 11:45) SlP070 % (MAY 23 11:45) Xladau380.9 kg (MAY 23:09) Nugwet946.42 cm (MAY 23 01:09) BMI30.22 (MAY 23 01:09) I&ORecordInOutBal 4hr Tot 850 0 850 4hr Tot 2500 450 2050 Lines, Tubes, and Drains: 05/22/2017 16:25 Peripheral Lines: Antecubital Right 20 gauge Over the needle catheter 05/22/2017 16:14 Peripheral Lines: Forearm Left 20 gauge Over the needle catheter [employer] CATHETER NEEDED FOR I/O MONITORING CENTRAL VENOUS LINE NEEDED Scheduled Meds (6): 05/23/17 aspirin (aspirin 81 mg tablet, enteric coated) 81 mg PO Daily 05/23/17 clopidogrel (Plavix) 75 mg PO Daily 05/23/17 pantoprazole (Protonix) 40 mg PO Before Dinner 05/23/17 sertraline (Zoloft) 100 mg PO Daily 05/23/17 simvastatin 80 mg PO Bedtime 05/23/17 vancomycin 1.25 gm IVPB [id number] 166.67 ml/hr Ventilator Support: 05/23/2017 11:45 Oxygen Therapy ModeRoom air SpO2 [id number] Labs (Last four charted values) WBC 7.8(MAY 23)9.3(MAY 22) Hgb L 12.3(MAY 23)L 12.7(MAY 22) Hct L 37.4(MAY 23)L 39.4(MAY 22) Plt L 132(MAY 23)172(MAY 22) Na 142(MAY 23)140(MAY 22) K 4.2(MAY 23)4.4(MAY 22) CO2 26(MAY 23)27(MAY 22) Cl H 110(MAY 23)107(MAY 22) Cr 1.15(MAY 23)H 1.80(MAY 22) BUN 17(MAY 23)20(MAY 22) Glucose Random H 101(MAY 23)94(MAY 22) Ca 9.5(MAY 23)10.2(MAY 22) PT 13.8(MAY 22) INR 1.06(MAY 22) PTT 30.3(MAY 22) Troponin <0.02(MAY 22) Total CK 63(MAY 22) Extracted from: Title: History and Physical Author: Anjum Brandon MD Date: 05/22/17 1. Hypotension 2. Sinus bradycardia 3. Acute metabolic encephalopathy, seems to be resolving 4. Hypertension 5. Hyperlipidemia 6. Mild dehydration 7. Mildaccidental narcotic overdose PLAN; Patient has some evidence ofdehydration,that in the setting of recent intake ofnarcotics and Soma may have triggeredhypotension and bradycardia. Thesemay have also explainedpatient's confusion when he was found byhis . At the moment, patientstill shows very slow mentation,but otherwise able to answer questions appropriately. Given the fact that patient was markedly hypotensiveand previous history of bleeding, will request H&H every 8 hours. Patient will be admitted to IMCUfor observation ofbradycardiaand to monitor for hypotension. In the meantime, patient will be put in telemetry, observe closelyin the morning. [facility], [facility] Addendum by Patient's CODE STATUS at the momentis full, he take his own medical decisions along Noemi with his Anjum jimenez MD on 05/23/2017 00:59 [facility]
--- OUTSIDE RECORDS SUMMARY | 2018-06-12 12:34 | XMS REPORT ---
Author Author [facility] Address Unknown Phone Unavailable Care Team Providers Care Band Attacher Name Role Phone JERROD CASTRO Unavailable Unavailable Problems This patient has no known problems. Allergies, Adverse Reactions, Alerts This patient has no known allergies or adverse reactions. Medications This patient has no known medications. Results Test Description Test Time Test Comments Text Results Atomic Results Result Comments CHEST 2 VIEWS 2018-06-04 13:17:00 [place] [address] Patient Name: ISABELA REN MR #: [id number] : 1945 Age/Sex: 72/M Req #: [id number] Adm Physician: Ordered by: JERROD CASTRO MD Report #: [id number] Location: OR Room/Bed: Procedure: [id number] DX/CHEST 2 VIEWS Exam Date: Exam Time: REPORT STATUS: Signed EXAMINATION: PA and lateral views of the chest. COMPARISON: None CLINICAL HISTORY: Preoperative study for lithotripsy DISCUSSION: Lines/tubes: None. Lungs: The lungs are well inflated and clear. There is no evidence of pneumonia or pulmonary edema. Pleura: There is no pleural effusion or pneumothorax. Heart and mediastinum: The cardiomediastinal silhouette is normal. Bones and soft tissues: No acute bony abnormalities. Degenerative changes in the thoracic spine IMPRESSION: No acute cardiopulmonary abnormalities. Signed by: Dr. Arun Sharp M.D. on 06/04/2018 1:18 PM Dictated By: ARUN SHARP MD [id number] Transcribed By: AAYUSH on 06/04/18 1318 COPY TO: JERROD CASTRO MD
[2018-06-12 16:00] VITALS: BP 147/81
--- NOTE | 2018-06-13 08:11 | Operative Report ---
DATE OF PROCEDURE: 06/12/2018 SURGEON: Abran Parkinson MD PREOPERATIVE DIAGNOSIS: Bilateral hydronephrosis with ureteral calculi causing obstruction. POSTOPERATIVE DIAGNOSIS: Bilateral hydronephrosis with ureteral calculi causing obstruction. OPERATION PERFORMED: Left ureteroscopy and cystoscopy, insertion of right 7-Filipino 30-cm double pig tail indwelling ureteral stent. ANESTHESIA: General. INDICATIONS: This patient is a 72-year-old white male who saw Dr. Matthew Heard for left-sided flank pain. Dr. Heard obtained a CT scan that showed bilateral hydronephrosis with a stone in the mid to distal third of the left ureter causing significant hydronephrosis and 2 stones in the proximal right ureter causing massive hydronephrosis. The patient was originally supposed to have ureteroscopy last week, but on his preop EKG, he was found to have atrial fibrillation. The patient was then seen by Dr. Paul Robison, who obtained an echocardiogram and felt that the patient after the echocardiogram was safe for surgical intervention. For further history, please refer to the history and physician and the note that I submitted from Dr. Robison. The procedure was done in the following fashion. PROCEDURE IN DETAIL: The patient was taken to the operating room, placed under general anesthesia and dressed and draped with Hibiclens in lithotomy position in the usual fashion. A preliminary scan of the abdomen was performed with the C-arm. At this point in time, I really could not see any stones, so it could be that we are dealing with very radiolucent stones. My plan since the pain was on the left side was to put up a stent on the right side, which has the higher stone and work on the left side, so the first thing I did was insert the cystoscope under direct vision, which was the 21-Filipino Olympus cystoscope with a 30-degree oblique lens. No urethral strictures were encountered. The sphincter and verumontanum were intact. The prostate was estimated at about 40 g. I saw efflux in both ureteral orifices. No bladder tumors or bladder stones were identified. There was moderate bladder trabeculation. I inserted a 5-Filipino open-ended catheter into the right ureteral orifice and obtained a retrograde pyelogram. This showed evidence of a relatively radiolucent stone causing obstruction at the level of the proximal third of the right ureter. So I inserted the catheter in the right ureter, obtained a retrograde, showed that there was an obstructing calculus present in the proximal third of the right ureter. I then passed an Amplatz Super Stiff through the 5-Filipino open-ended catheter and once that was in good position, I removed the 5-Filipino open-ended catheter. I then passed an Olympus 7-Filipino 30-cm double pig tail indwelling ureteral stent over the guidewire with a pusher. When I could see the stent was in good position on cystoscopy and fluoroscopy, I removed the guidewire. This revealed the stent to be in good position on the right side on cystoscopy and fluoroscopy. Attention was then delivered to the left side, which was the side that was initially hurting him and where he had a stone on CT scan in the mid to distal third of the left ureter. My first step was to insert the 5-Filipino open-ended catheter into the left ureteral orifice and obtain a retrograde pyelogram. The retrograde pyelogram actually appeared normal. So my concern was that the patient passed the stone or I am just not seeing it because he definitely had hydronephrosis and a stone on the CT scan on the left side. So I thought that the easiest and safest thing for me to do at this point in time is to proceed with the ureteroscopy on the left side. So what I did was I advanced the Amplatz Super Stiff up the 5-Filipino open-ended catheter into the kidney on the left side. Now that I have this in good position, I removed the cystoscope leaving this guidewire in position. I then passed the 10-Filipino double lumen introducer over the Amplatz Super Stiff and this went in without difficulty. I then inserted a nitinol guidewire through the open lumen leaving these 2 guidewires going up into the left kidney. I then passed the flexible ureteroscopy sheath over the nitinol guidewire up the ureter. Once this was in position, I now had the safety guidewire in good position on the left side and I removed the inner sheath from the flexible ureteroscopy sheath. I inserted the Olympus flexible deflectable ureteroscopy all the way up into the left kidney. At this point in time, I could see no stones in the ureter and as I carefully inspected each calyx, there was some small microcalcifications present in each calyx where there were some tiny crystal formations, but no real stone to blast with a laser. After completing inspection of the left renal calyces and the left renal pelvis, I then slowly looked my way down the ureter with a flexible ureteroscope and removed the flexible ureteroscopy sheath along the way in order to make sure that I got to look at the entire ureter and there were no stones seen in the ureter. The flexible cystoscope was then withdrawn and the flexible ureteroscopy sheath was completely withdrawn prior to removal as well. At the end of the procedure, the patient now had no stones that I can identify on the left side and the left side was no longer hydronephrotic and since the procedure went so gently, I decided he did not need a stent on the left side. The right side has a stent and it is still obstructed in the proximal ureter, but it has a stent present now, a 7-Filipino 30-cm stent unobstructing the right kidney. My plan at this time is for the patient to continue his Macrobid at home. He will have a return appointment to see me again next week for a followup plan for the abdomen and then we will make arrangements for a ureteroscopy on the right side in order to take care of the obstructing calculus in the proximal right ureter. Abran Parkinson MD SRA/MODL /[id number]
== END | disposition home or self-care (01) ==
LOC: OR 12:30
PROVIDERS: ATTEND Urology
DX: N13.2 Hydronephrosis with renal and ureteral calculous obstruction (principal); Z83.3 Family history of diabetes mellitus; Z82.49 Family history of ischemic heart disease and other diseases of the circulatory system; Z80.8 Family history of malignant neoplasm of other organs or systems; R42 Dizziness and giddiness; Z86.010 Personal history of colon polyps; M48.05 Spinal stenosis, thoracolumbar region; Z01.810 Encounter for preprocedural cardiovascular examination; Z01.812 Encounter for preprocedural laboratory examination; Z01.811 Encounter for preprocedural respiratory examination; I48.91 Unspecified atrial fibrillation
CPT/HCPCS: 36415; 52332; 71046; 74420; 80053; 85025; 85610; 85730; 93005; C1766; C2617; J0694; J1100; J2001; J2405; J2704; Q9967

== ENCOUNTER → 2018-06-26 | Day surgery (SDC) | payer MEDICARE, OTHER ==
[2018-06-25 12:10] LABS: BASOPHILS % 0.6 % (0.0-1.0); EOSINOPHILS # (AUTO) 0.2 (0.0-0.4); EOSINOPHILS % 2.3 % (0.0-6.0); HEMATOCRIT 38.5 % (38.2-49.6); HEMOGLOBIN 12.3 g/dL (14.0-18.0); LYMPHOCYTES % 15.1 % (18.0-39.1); MEAN CORPUSCULAR HEMOGLOBIN 32.1 pg (28-32); MEAN CORPUSCULAR HGB CONC 31.9 g/dL (31-35); MEAN CORPUSCULAR VOLUME 100.5 fL (81-99); MONOCYTES # (AUTO) 0.5 (0.2-0.8); MONOCYTES % 7.7 % (4.4-11.3); NEUTROPHILS # (AUTO) 4.9 (2.1-6.9); PLATELET COUNT 173 x10e3/uL (140-360); RED BLOOD COUNT 3.83 x10e6/uL (4.3-5.7); RED CELL DISTRIBUTION WIDTH 12.9 % (11.7-14.4)
[2018-06-25 12:31] LABS: ANION GAP 13.2 mmol/L (8-16); CALCIUM 10.5 mg/dL (8.4-10.2); CREATININE, SERUM 1.26 mg/dL (0.72-1.25); POTASSIUM 4.2 mmol/L (3.5-5.1)
[~2018-06-26] MED LIST changes: +DESFLURANE 240 ML BTL INH ONE; +ELIQUIS PO; +ETOMIDATE 2 MG/ML 10 ML INJ IV ONE; -SEVOFLURANE INHAL SOLN 250 ML PEN BTL ONE
--- OUTSIDE RECORDS SUMMARY | 2018-06-26 12:48 | XMS REPORT | Clinical Summary ---
Author Author [facility] Address Unknown Phone Unavailable Care Team Providers Care Cattle Feeder Name Role Phone Timo Heard MD PCP [...] (Primary Dx) 09/04/2017 Emergency Emergency Medicine after 06/25/2017 Family History Medical History Relation Name Comments [...] Date Type Specialty Evaristo Darling MD [address], [address] [place] [address] [phone] 06/30/2018 Office Visit Wound Care Evaristo Darling MD [address], [address] [place] [address] [phone] 07/07/2018 Office Visit Wound Care Health Maintenance Due Date Last Done Comments COLON CANCER SCREENING 1994 SHINGLES VACCINES (#1) 1994 65+ PNEUMOCOCCAL VACCINE 2009 (1 of 2 - PCV13) PNEUMOCOCCAL 2009 POLYSACCHARIDE VACCINE AGE 65 AND OVER INFLUENZA VACCINE 11/19/2017 Procedures Comments Procedure Name Priority Date/Time Associated Diagnosis US THYROID Routine 06/17/2018 Thyroid nodule 10:51 AM AUTOMOBILE TESTER NM THYROID UPTAKE AND Routine 05/21/2018 Thyroid nodule SCAN SINGLE OR MULTIPLE 10:47 AM AUTOMOBILE TESTER TROPONIN Timed 09/04/2017 3:36 PM CDT XR [...] 09/04/2017 W/AUTO DIFF 11:04 AM CDT after 06/25/2017 Results * US Thyroid (06/17/2018 10:51 AM AUTOMOBILE TESTER) Narrative Performed At EXAMINATION:US THYROID [facility] CLINICAL HISTORY:E04.1 Nontoxic single thyroid nodule, thyroid nodule COMPARISON:No TECHNIQUE: Routine thyroid ultrasound obtained IMPRESSION: Right lobe 4.8 x 1.0 x 2.1 cm, isthmus 0.5 cm, left lobe 4.7 x 1.2 x 1.5 cm. NODULE:1 *Location: Right lobe mid anterior *Size: 0.1 x 0.5 x 0.9cm *Composition: Mixed cystic and solid - 1 pt *Echogenicity: Hypoechoic - 2 pts *Shape: Agsdg-nocd-kgtr - 0 pts *Margin: Smooth - 0 pts *Echogenic foci: None or large comet-tail artifacts - 0 pts TI-RADS Category: 3 Recommendation: No followup deemed necessary by TI-RADS criteria. Subcentimeter cysts bilaterally elsewhere, none of which require follow-up. Punctate dystrophic calcification in the left thyroid lobe without an associated nodule. [id number] Procedure Note Hm Interface, Radiology Results Incoming - 06/17/2018 11:03 AM AUTOMOBILE TESTER EXAMINATION: US THYROID CLINICAL HISTORY: E04.1 Nontoxic single thyroid nodule, thyroid nodule COMPARISON: No TECHNIQUE: Routine thyroid ultrasound obtained IMPRESSION: Right lobe 4.8 x 1.0 x 2.1 cm, isthmus 0.5 cm, left lobe 4.7 x 1.2 x 1.5 cm. NODULE: 1 * Location: Right lobe mid anterior * Size: 0.1 x 0.5 x 0.9 cm * Composition: Mixed cystic and solid - 1 pt * Echogenicity: Hypoechoic - 2 pts * Shape: Veefx-wgba-xubl - 0 pts * Margin: Smooth - 0 pts * Echogenic foci: None or large comet-tail artifacts - 0 pts TI-RADS Category: 3 Recommendation: No followup deemed necessary by TI-RADS criteria. Subcentimeter cysts bilaterally elsewhere, none of which require follow-up. Punctate dystrophic calcification in the left thyroid lobe without an associated nodule. [facility]-[id number] Performing Organization Address City/State/Zipcode Phone Number [facility] [address] [place] [address] * NM Thyroid Uptake And Scan Single Or Multiple (05/21/2018 10:47 AM AUTOMOBILE TESTER) Narrative Performed At EXAMINATION: NM THYROID UPTAKE AND SCAN SINGLE OR MULTIPLE [facility] H[facility]:E04.1 Nontoxic single thyroid nodule, thyroid [...] hot (autonomous) nodule to explain the hyperthyroidism. [facility]-[id number] Procedure Note Interface, Radiology Results Incoming - 05/21/2018 11:38 AM AUTOMOBILE TESTER EXAMINATION: NM THYROID UPTAKE AND SCAN SINGLE [...] hot (autonomous) nodule to explain the hyperthyroidism. [facility]-[id number] Performing Organization Address City/[facility] Centercode Phone Number [facility] [address] [place] [address] * Troponin (09/04/2017 3:36 PM CDT) Only the most recent of 2 results within the time period is included. Troponin <0.01 0.00 - 0.60 ng/mL [facility] DEPARTMENT OF Comment: PATHOLOGY AND 0.11 - 1.49 GENOMIC MEDICINE ng/mlMay indicate increased risk of acute coronary syndrome. >=1.5 ng/ml Consistent with acute myocardial infarction. The diagnostic value of a single normal or non-diagnostic result is questionable.Serial samples at 2-6 hour intervals are required to rule out acute myocardial injury. Specimen Plasma specimen Performing Organization Address [facility] Centercode Phone Number [facility] DEPARTMENT OF [address] [place] [address] PATHOLOGY AND GENOMIC MEDICINE * XR Chest 1 Vw Portable (09/04/2017 2:11 PM CDT) Narrative Performed At EXAMINATION:XR CHEST 1 VW PORTABLE [facility] CLINICAL HISTORY:Chest Pain COMPARISON:03/15/2017 IMPRESSION: 1.The heart size is normal. 2.There is no evidence pulmonary edema. Minimal subsegmental atelectasis is present at the left lung base. There are no pleural effusions. [facility]-[id number] Procedure Note Interface, Radiology Results Incoming - 09/04/2017 2:20 PM CDT EXAMINATION: XR CHEST 1 VW PORTABLE CLINICAL HISTORY: Chest Pain COMPARISON: 03/15/2017 IMPRESSION: 1. The heart size is normal. 2. There is no evidence pulmonary edema. Minimal subsegmental atelectasis is present at the left lung base. There are no pleural effusions. [facility]-[id number] Performing Organization Address [facility] Cancer Centercode Phone Number [facility] [address] [place] [address] * MRA Neck Wo Contrast (09/04/2017 12:50 PM CDT) Narrative Performed At EXAMINATION: MRA NECK WO CONTRAST [facility]ICAL [facility]: ams COMPARISON:None TECHNIQUE: 2-D and 3-D Txim-fb-mqjkzz MRA images of the cervical vessels were [...] occlusion, dissection, aneurysms, pseudoaneurysms or vascular malformations. [id number] Procedure Note Interface, Radiology Results Incoming - 09/04/2017 1:04 PM CDT EXAMINATION: MRA NECK WO CONTRAST CLINICAL HISTORY: ams COMPARISON: None TECHNIQUE: 2-D and 3-D Ubcn-da-gmhidn MRA images of the cervical vessels were [...] occlusion, dissection, aneurysms, pseudoaneurysms or vascular malformations. [id number] Performing Organization Address City/State/Zipcode Phone Number [facility] [address] [place] [address] * MRA Head Wo Contrast (09/04/2017 12:50 PM CDT) Narrative Performed At EXAMINATION: MRA HEAD WO CONTRAST [facility] CLINICAL HISTORY: ams COMPARISON:None TECHNIQUE: Yiex-mi-drhlaf MRA images of the [place] vessels were obtained with multiplanar [...] hemodynamically significant stenosis or aneurysm - Right HEEL CEMENTER: Patent. - Left HEEL CEMENTER: Patent. - Bilateral superior cerebral arteries: There is no hemodynamically significant stenosis or aneurysm . - Bilateral anterior inferior cerebellar arteries: Patent.There is no hemodynamically significant stenosis or aneurysm. - Bilateral PICAs: Partially visualized and patent. - Intradural segment of the vertebral arteries:There is no hemodynamically significant stenosis or aneurysm. IMPRESSION: There is no evidence of intracranial flow-limiting stenosis, occlusion, aneurysm or dissection. [id number] Procedure Note [facility], Radiology Results Incoming - 09/04/2017 1:07 PM CDT EXAMINATION: MRA HEAD WO CONTRAST CLINICAL HISTORY: ams COMPARISON: None TECHNIQUE: Tixk-nk-ymivtu MRA images of the [place] vessels were obtained with multiplanar [...] hemodynamically significant stenosis or aneurysm - Right HEEL CEMENTER: Patent. - Left HEEL CEMENTER: Patent. - Bilateral superior cerebral arteries: There is no hemodynamically significant stenosis or aneurysm . - Bilateral anterior inferior cerebellar arteries: Patent.There is no hemodynamically significant stenosis or aneurysm. - Bilateral PICAs: Partially visualized and patent. - Intradural segment of the vertebral arteries:There is no hemodynamically significant stenosis or aneurysm. IMPRESSION: There is no evidence of intracranial flow-limiting stenosis, occlusion, aneurysm or dissection. [id number] Performing Organization Address City/State/Zipcode Phone Number [facility] [address] [place] [address] * MRI Brain Wo Contrast (09/04/2017 12:49 PM CDT) Narrative Performed At [facility] EXAMINATION:MRI BRAIN WO CONTRAST CLINICAL HISTORY:ams COMPARISON:None. [...] periventricular ischemic white matter changes are present. [id number] Procedure Note Interface, Radiology Results [facility] - 09/04/2017 1:01 PM CDT EXAMINATION: MRI [...] periventricular ischemic white matter changes are present. [id number] Performing Organization Address [facility] Centercoin Phone Number [facility] [address] [place] [address] * ECG 12 lead (09/04/2017 11:26 AM CDT) Ventricular rate 51 [facility] Atrial rate 51 [facility] ND interval 182 [facility] QRSD interval 86 [facility] QT interval 412 [facility] QTC interval 379 [facility] P axis 1 30 [facility] QRS axis 1 -2 [facility] T wave axis 41 [facility] EKG impression Sinus bradycardia-Otherwise [facility] MUSE normal ECG-In automated comparison with ECG of 14-MAR-2017 14:46,-Sinus rhythm has replaced Ectopic atrial rhythm-Vent. rate has decreased BY 31 BPM- Performing Organization Address [facility] Phone Number [facility] MUSE [address] [place] [address] * ECG ED Preliminary Interpretation - NOT AN ORDER (09/04/2017 11:20 AM CDT) Narrative Performed At Howard Corona MD 09/05/20171:10 PM ECG ED Preliminary Interpretation - Not an Order Performed by: HOWARD CORONA Authorized by: HOWADR CORONA Rate: ECG rate:51 ECG rate assessment: [...] at 09/04/2017 11:10 AM who verbalized understanding. [facility]-[id number] Procedure Note Interface, Radiology Results Incoming - [...] at 09/04/2017 11:10 AM who verbalized understanding. [facility]-[id number] Performing Organization Address City/State/Zipcode Phone Number [facility] [address] [place] [address] * Estimated GFR (09/04/2017 11:04 AM CDT) GFR Non Af Amer 54 (A) mL/min/1.73 m2 [facility] DEPARTMENT OF PATHOLOGY AND GENOMIC MEDICINE GFR Af Amer 66 mL/min/1.73 m2 [facility] DEPARTMENT OF Comment: PATHOLOGY AND Chronic kidney [...] Americans. Specimen Plasma specimen Performing Organization Address [facility] Centercode Phone Number [facility] [address] [place] [address]. [place] [address] PATHOLOGY AND [facility] * Partial thromboplastin time, activated (09/04/2017 11:04 AM CDT) PTT 30.4 23.0 - 36.0 sec [facility] DEPARTMENT OF Comment: PATHOLOGY AND PTT therapeutic range for [facility] unfractionated heparin is 61.0-112.0 seconds which corresponds to Anti-Xa 0.3-0.7 U/ml. Note:Change in Panic Value The PTT Panic Value is changing from 110 sec. to 100 sec. due to new instrumentation and reagents. Correlation studies have been performed to validate this result. Specimen Blood Performing Organization Address [facility] Phone Number [address] * Prothrombin time with INR (09/04/2017 11:04 AM CDT) Prothrombin time 13.7 12.0 - 15.0 sec [facility] DEPARTMENT OF PATHOLOGY AND [facility] INR 1.04 0.92 - 1.12 [facility] DEPARTMENT OF Comment: PATHOLOGY AND For patients on anticoagulant GENOMIC MEDICINE therapy, reference ranges below: Indication: INR Value Treatment of Venous Thrombosis, 2.0-3.0 pulmonary emboli, or prophylaxis of a venous thrombosis, or systemic emboli. High dose, high risk patients 3.0-4.5 with mechanical valves. NOTE:INR values over 3.0 are sometimes associated with gastrointestinal hemorrhage, especially values over 4.0. Specimen Blood Performing Organization Address [facility] Centercode Phone Number [address] [facility] * CBC with platelet and differential (09/04/2017 11:04 AM CDT) WBC 8.2 4.2 - 11.0 k/uL [facility] DEPARTMENT OF PATHOLOGY AND [facility] MEDICINE RBC 4.19 4.04 - 5.86 m/uL [facility] DEPARTMENT OF PATHOLOGY AND GENOMIC MEDICINE HGB 12.9 (L) 13.0 - 17.3 g/dL [facility] DEPARTMENT OF PATHOLOGY AND GENOMIC MEDICINE HCT 40.1 34.0 - 45.0 % [facility] DEPARTMENT OF PATHOLOGY AND GENOMIC MEDICINE MCV 95.7 80.0 - 98.0 fL [facility] DEPARTMENT OF PATHOLOGY AND GENOMIC MEDICINE MCH 30.8 27.0 - 34.0 pg [facility] DEPARTMENT OF PATHOLOGY AND GENOMIC MEDICINE MCHC 32.2 31.5 - 36.5 g/dL [facility] DEPARTMENT OF PATHOLOGY AND GENOMIC MEDICINE RDW - SD 47.1 37.0 - 51.0 fL [facility] DEPARTMENT OF PATHOLOGY AND GENOMIC MEDICINE MPV 11.4 (H) 7.4 - 10.4 fL [facility] DEPARTMENT OF PATHOLOGY AND GENOMIC MEDICINE Platelet count 128 (L) 150 - 400 k/uL [facility] DEPARTMENT OF PATHOLOGY AND GENOMIC MEDICINE Nucleated RBC 0.00 /100 WBC [facility] DEPARTMENT OF PATHOLOGY AND GENOMIC MEDICINE Neutrophils 78.0 (H) 36.0 - 66.0 % [facility] DEPARTMENT OF PATHOLOGY AND GENOMIC MEDICINE Lymphocytes 15.5 (L) 24.0 - 44.0 % [facility] DEPARTMENT OF PATHOLOGY AND GENOMIC MEDICINE Monocytes 5.5 0.0 - 6.0 % [facility] DEPARTMENT OF PATHOLOGY AND GENOMIC MEDICINE Eosinophils 0.0 0.0 - 6.0 % [facility] DEPARTMENT OF PATHOLOGY AND GENOMIC MEDICINE Basophils 0.5 0.0 - 1.2 % [facility] DEPARTMENT OF PATHOLOGY AND GENOMIC MEDICINE Immature granulocytes 0.5 0.0 - 1.0 % [facility] DEPARTMENT OF PATHOLOGY AND GENOMIC MEDICINE Performing Organization Address City/State/Zipcode Phone Number [place] [id number] [place] [address] PATHOLOGY AND GENOMIC MEDICINE * Comprehensive metabolic panel (09/04/2017 11:04 AM CDT) Sodium 145 135 - 150 mEq/L [facility] DEPARTMENT OF PATHOLOGY AND GENOMIC MEDICINE Potassium 3.8 3.5 - 5.0 mEq/L [facility] DEPARTMENT OF PATHOLOGY AND GENOMIC MEDICINE Chloride 111 (H) 100 - 109 mEq/L [facility] DEPARTMENT OF PATHOLOGY AND GENOMIC MEDICINE CO2 25 24 - 32 mmol/L [facility] DEPARTMENT OF PATHOLOGY AND GENOMIC MEDICINE Anion gap 9@ANIO 7 - 15 mEq/L [facility] DEPARTMENT OF PATHOLOGY AND GENOMIC MEDICINE BUN 11 7 - 18 mg/dL [facility] DEPARTMENT OF PATHOLOGY AND GENOMIC MEDICINE Creatinine 1.3 0.8 - 1.5 mg/dL [facility] DEPARTMENT OF PATHOLOGY AND GENOMIC MEDICINE Glucose 111 (H) 65 - 100 mg/dL [facility] DEPARTMENT OF PATHOLOGY AND GENOMIC MEDICINE Calcium 9.8 8.6 - 10.7 mg/dL [facility] DEPARTMENT OF PATHOLOGY AND GENOMIC MEDICINE Protein 6.8 6.3 - 8.2 g/dL [facility] DEPARTMENT OF PATHOLOGY AND GENOMIC MEDICINE Albumin 3.3 3.2 - 5.0 g/dL [facility] DEPARTMENT OF PATHOLOGY AND GENOMIC MEDICINE A/G ratio 0.9 0.7 - 3.8 [facility] DEPARTMENT OF PATHOLOGY AND GENOMIC MEDICINE Alkaline phosphatase 95 30 - 120 U/L [facility] DEPARTMENT OF PATHOLOGY AND GENOMIC MEDICINE AST 19 15 - 37 U/L [facility] DEPARTMENT OF PATHOLOGY AND GENOMIC MEDICINE ALT 17 (L) 30 - 65 U/L [facility] DEPARTMENT OF PATHOLOGY AND GENOMIC MEDICINE Total bilirubin 0.6 0.2 - 1.2 mg/dL [facility] DEPARTMENT OF PATHOLOGY AND GENOMIC MEDICINE Specimen Plasma specimen Performing Organization Address City/[facility] Centercode Phone Number [facility] [address] [place] [address] PATHOLOGY AND GENOMIC MEDICINE * Basic metabolic panel (09/04/2017 11:04 AM CDT) Sodium 145 135 - 150 mEq/L [facility] DEPARTMENT OF PATHOLOGY AND GENOMIC MEDICINE Potassium 3.8 3.5 - 5.0 mEq/L [facility] DEPARTMENT OF PATHOLOGY AND GENOMIC MEDICINE Chloride 111 (H) 100 - 109 mEq/L [facility] DEPARTMENT OF PATHOLOGY AND GENOMIC MEDICINE CO2 25 24 - 32 mmol/L [facility] DEPARTMENT OF PATHOLOGY AND GENOMIC MEDICINE Anion gap 9@ANIO 7 - 15 mEq/L [facility] DEPARTMENT OF PATHOLOGY AND GENOMIC MEDICINE BUN 11 7 - 18 mg/dL [facility] DEPARTMENT OF PATHOLOGY AND GENOMIC MEDICINE Creatinine 1.3 0.8 - 1.5 mg/dL [facility] DEPARTMENT OF PATHOLOGY AND GENOMIC MEDICINE Glucose 111 (H) 65 - 100 mg/dL [facility] DEPARTMENT OF PATHOLOGY AND GENOMIC MEDICINE Calcium 9.8 8.6 - 10.7 mg/dL [facility] DEPARTMENT OF PATHOLOGY AND GENOMIC MEDICINE Specimen Plasma specimen Performing Organization Address City/State/[facility] Cancer Centercode Phone Number [facility] [address] [place] [address] PATHOLOGY AND GENOMIC MEDICINE after 06/25/2017 Insurance Payer Benefit Subscriber ID Type Phone Address Plan / Group MEDICARE MEDICARE xxxxxxxxxx Medicare [place], [place] PART A AND B AETNA AETNA xxxxxxxxxx HMO HMO,POS,EP O, MC/EC Advance Directives Patient has advance care planning documents on file. For more information, plecoco e contact: Collin Rosales [address] [place] [address]
--- OUTSIDE RECORDS SUMMARY | 2018-06-26 12:49 | XMS REPORT ---
Author Author [facility] Address Unknown Phone Unavailable Care Team Providers Care Recording Studio Set Up Worker Name Role Phone JERROD CASTRO Unavailable Unavailable Problems This patient has no known problems. Allergies, Adverse Reactions, Alerts This patient has no known allergies or adverse reactions. Medications This patient has no known medications. Results Test Description Test Time Test Comments Text Results Atomic Results Result Comments CHEST 2 VIEWS 2018-06-04 13:17:00 [place] [address] Patient Name: ISABELA ROCK MR #: [id number] : 1945 Age/Sex: 72/M Req #: [id number] Adm Physician: Ordered by: JERROD CASTRO MD Report #: [id number] Location: OR Room/Bed: Procedure: [id number] DX/CHEST 2 VIEWS Exam Date: Exam Time: [...] on 06/04/2018 1:18 PM Dictated By: ARUN SAHRP MD [id number] Transcribed By: AAYUSH on 06/04/18 1318 COPY TO: JERROD CASTRO MD
[2018-06-26 18:06] VITALS: BP 143/88
--- NOTE | 2018-06-27 03:43 | Operative Report ---
DATE OF PROCEDURE: 06/26/2018 SURGEON: Abran Parkinson MD PREOPERATIVE DIAGNOSES: 1. Proximal right ureter calculi. 2. Right hydronephrosis. POSTOPERATIVE DIAGNOSES: 1. Proximal right ureter calculi. 2. Right hydronephrosis. OPERATION PERFORMED: Right ureteroscopy with holmium laser lithotripsy and insertion of right 7 [place] 28 cm double pigtail indwelling ureter stent. ANESTHESIA: General. INDICATIONS: This patient is a 72-year-old white male, who was having a severe left-sided flank pain. A CT scan revealed he had bilateral stones, one causing hydronephrosis in the distal third to mid left ureter, which was causing most of his pain and the other one he had about 2 stones measuring a total of about 6-7 mm in size in the proximal third of the right ureter causing hydronephrosis. The patient went on to have a cystoscopy and insertion of a right ureter stent and a left ureteroscopy. The stone was gone from the left side, the patient now returns to have a right ureteroscopy with holmium laser lithotripsy and possible replacement of the stent. The procedure was done in the following fashion. DESCRIPTION OF PROCEDURE: The patient was taken to the operating room and placed under general anesthesia and dressed and draped with Hibiclens in lithotomy position in the usual fashion. A preliminary scan of the abdomen revealed that the right ureter stent was in good position. No stones were identified, in fact these stones have been shown to be radiolucent at the time of his last procedure. The first step was to insert the 22 [place] Olympus cystoscope with the 30-degree oblique lens. The sphincter and verumontanum were intact. The prostate was estimated at about 30 g. I can see the stent coming out of the right ureteral orifice. There was some inflammation around the stent with some bullous edema. The distal end of the stent was grabbed with a flexible grasping forceps and pulled up to the end of his penis. Now in order to get the scope in, I first had to dilate the ureteral meatus. He had a mild phimosis and I first had to dilate the urethral meatus to 28 [place] before I could insert the cystoscope. Now, I had the cystoscope in good position. The distal end of the stent was identified, grabbed with a flexible grasping forceps and pulled up into the tip of his penis. At this point in time, I then inserted an Amplatz Super Stiff guidewire through the stent up into the kidney as a safety guidewire. The stent was then removed leaving the Amplatz Super Stiff in place. I then passed a 10 [place] double lumen introducer over the Amplatz Super Stiff and then obtained a retrograde pyelogram with a 50% dilution of contrast media through the free lumen. This revealed that the guidewire was in good position, but the patient still had hydronephrosis present. I then inserted a SuperGlide guidewire through the free lumen leaving 2 guidewires going up into the right kidney. I then removed the 10 [place] double lumen introducer. My next step was to pass the long flexible ureteroscopy sheaths over the SuperGlide guidewire. Once these were in position, I removed the inner sheath. I then passed the Olympus flexible ureteroscope through the flexible ureteroscopy to look up the ureter. Some smaller stone fragments were encountered in the mid to proximal ureter, which were hit with the holmium laser. It was set at 6.4 ventura 8 hertz and 0.8 joules per pulse and once I passed these stones, I then encountered a tight strictured area with approximately 2 stones present in it in the proximal ureter just below the renal pelvis. Using the holmium laser, I slowly worked my way through this fragmenting the stone into multiple small pieces until I could look my way up into the renal pelvis. I then inspected the renal pelvis using fluoroscopy to help with localization as to what I was looking at. Several stone fragments were identified between the renal pelvis and these were removed using a stone basket. I then began the process of looking my way back down the ureter when I encountered some stone fragments. These were also removed using the stone basket. When the ureter appeared free of stones, I then removed the ureteroscope and the flexible ureteroscopy sheath. Because of the presence of the elizabeth of the strictured area in the proximal third of the ureter, I felt safest putting in a stent. Therefore, once the flexible ureteroscopy sheath was out, I then re-inserted the 10 [place] double lumen introducer over the Amplatz Super Stiff and then re-inserted the SuperGlide guidewire through the free lumen. Once these were in good position, I removed the 10 [place] double lumen introducer and passed a 22 [place] cystoscope sheath over the guidewire. I then passed a 30-degree oblique lens in the bridge over the guidewire. I then passed an Olympus 7 [place] 28 cm double pigtail indwelling ureter stent over the guidewire using a pusher. When I could see the stent was in good position on cystoscopy and fluoroscopy, I removed the guidewire. This revealed a good position within the kidney. I then removed the Amplatz Super Stiff. A final scan of the abdomen revealed the stent to be in good position. No evidence of extravasation. The bladder was emptied and the cystoscope was withdrawn. The patient tolerated the procedure well and left the operating room in good condition. The stone fragments have been sent for analysis. The patient will go home on his preoperative medications, which include Macrobid 100 mg p.o. twice daily and [place] p.r.n. pain. He will have return appointment to see me again in 2 weeks for followup flatplate of the abdomen and I advised his that the stent could either be removed in my office under local or I could do under general anesthesia depending upon how he felt about it. Blood loss was minimal. FINAL DIAGNOSES: Right hydronephrosis, right ureter calculi, and right ureteral stricture. Abran Parkinson MD SRA/MODL /[id number] MTDD
--- NOTE | 2018-06-29 17:54 | Diagnostic Imaging Report ---
Exam: Retrograde cystourethrogram. History: Right hydronephrosis. Comparison: None available Findings: Total of 16 images were taken and scored to the medical record. Retrograde catheterization of the right ureter was accomplished. Catheter was advanced into the renal pelvis with injection of contrast material demonstrating massive hydronephrosis. A ureteroscope was advanced into the renal pelvis. A double-J ureteral stent was placed into the renal pelvis with the tip in the bladder. Position appears appropriate. Fluoroscopy time: 30 seconds Cumulative area dose product: 373.31 cGycm2 Cumulative air kerma: 10.49 mGy Impression: 1. Right hydronephrosis with placement of a double-J ureteral stent. 2. Please see the full report provided by the performing Urologist. Signed by: Dr. Gonzalo Garsia DO on 06/29/2018 5:51 PM
== END | disposition home or self-care (01) ==
LOC: OR 12:44
PROVIDERS: ATTEND Urology
DX: N13.2 Hydronephrosis with renal and ureteral calculous obstruction (principal); N47.1 Phimosis; Z46.6 Encounter for fitting and adjustment of urinary device; K21.9 Gastro-esophageal reflux disease without esophagitis; I50.9 Heart failure, unspecified; N18.9 Chronic kidney disease, unspecified; N28.1 Cyst of kidney, acquired; K64.4 Residual hemorrhoidal skin tags; I25.10 Atherosclerotic heart disease of native coronary artery without angina pectoris; I48.91 Unspecified atrial fibrillation; M99.51 Intervertebral disc stenosis of neural canal of cervical region; M51.85 Other intervertebral disc disorders, thoracolumbar region; H81.49 Vertigo of central origin, unspecified ear; K80.20 Calculus of gallbladder without cholecystitis without obstruction; Z01.812 Encounter for preprocedural laboratory examination; Z79.02 Long term (current) use of antithrombotics/antiplatelets
CPT/HCPCS: 36415; 52356; 74420; 80048; 85025; 88300; 93005; C1758; C1766; J0694; J1100; J2001; J2405; J2704; Q9967